=== PATIENT | male | born 1955 | race African-American/Black ===

== ENCOUNTER 2017-02-26 19:20 | Observation (INO) | payer OTHER ==
[~2017-02-26] VITALS: Ht 182.9 cm; Wt 78.2 kg
[2017-02-26] MEDS ORDERED: LISI-461 PO (19:40)
[2017-02-26] MEDS ORDERED: ATOR-24 PO (19:40)
[2017-02-26] MEDS ORDERED: ASPI81TA28 PO (19:40)
[2017-02-26] MEDS ORDERED: NORT25CA PO (19:40)
[2017-02-26] MEDS ORDERED: DIPH50CA PO (19:40)
[2017-02-26] MEDS ORDERED: AMLO-110 PO (19:40)
[2017-02-26] MEDS ORDERED: GLIM1TAB2 PO (19:40)
[2017-02-26] MEDS ORDERED: HYDR25TA5 PO (19:40)
[2017-02-26] MEDS ORDERED: SODIUM CHLORIDE 0.9% 1000ML 1,000 ML IV STA ×2 (19:52→21:31)
[2017-02-26 20:02] LABS: BASO % 0.1 %; BASO ABS # 0.01 K/uL (0-0.2); EOS % 0.1 %; EOS ABS # 0.01 K/uL (0-0.5); HEMATOCRIT 44.2 % (42-52); HEMOGLOBIN 15.6 g/dL (14.0-18.0); IG# 0.02 K/uL (0.00-0.02); LYMPH % 18.5 %; MEAN CELL VOLUME 92.1 fL (80-100); MEAN CORPUSCULAR HEMOGLOBIN 32.5 pg (25-34); MEAN CORPUSCULAR HGB CONC 35.3 g/dl (32-36); MEAN PLATELET VOLUME 9.6 fL (7.4-10.4); MONO % 5.7 %; MONO ABS # 0.52 K/uL (0.11-0.59); NEUT % 75.4 %; NEUT ABS # 6.93 K/uL (1.4-6.5); PLATELET COUNT 190 K/uL (130-400); RED CELL DISTRIBUTION WIDTH CV 12.4 % (11.5-14.5); RED CELL DISTRIBUTION WIDTH SD 42.2 fL (36.4-46.3); WHITE BLOOD COUNT 9.19 K/uL (4.8-10.8)
--- NOTE | 2017-02-26 20:16 | DIAGNOSTIC IMAGING REPORT ---
CT SCAN OF THE BRAIN WITHOUT IV CONTRAST CLINICAL HISTORY: Change in mental status. Unresponsive. COMPARISON STUDY: No priors. TECHNIQUE: Unenhanced axial CT scan of the brain is performed from the vertex to the skull base. A dose lowering technique was utilized adhering to the principles of ALARA. CT DOSE: 810.83 mGy.cm FINDINGS: Brain parenchyma: The brain parenchyma is normal in appearance. There is no hemorrhage, mass effect, or evidence of acute territorial ischemia by CT criteria. Joe-white matter is preserved. No extra-axial fluid collection is seen. Ventricles, sulci, cisterns: Normal in configuration. Intracranial vasculature: There is atherosclerotic calcification of the cavernous carotid arteries. Calvarium: Unremarkable. Sinuses and mastoids: The visualized paranasal sinuses are clear. The mastoid air cells are well pneumatized. Orbits: The bony orbits are grossly intact. IMPRESSION: There is no hemorrhage, mass effect, or evidence of acute territorial ischemia by CT criteria. Electronically signed by: Valdez Carreon M.D. 02/26/2017 8:15 PM Dictated Date/Time: 02/26/2017 8:13 PM
--- NOTE | 2017-02-26 20:27 | DIAGNOSTIC IMAGING REPORT ---
SINGLE VIEW CHEST CLINICAL HISTORY: Generalized abdominal pain. FINDINGS: An AP, portable, upright chest radiograph is obtained. No prior studies are available for comparison at the time of dictation. The examination is mildly degraded by portable technique and patient rotation. The cardiomediastinal silhouette is unremarkable. The lungs and pleural spaces are clear. No pneumothorax is seen. The bony thorax is grossly intact. IMPRESSION: No active disease in the chest. Electronically signed by: Valdez Carreon M.D. 02/26/2017 8:25 PM Dictated Date/Time: 02/26/2017 8:24 PM
[2017-02-26 22:15] LABS: BASO % 0.1 %; BASO ABS # 0.01 K/uL (0-0.2); EOS % 0.1 %; EOS ABS # 0.01 K/uL (0-0.5); HEMATOCRIT 41.9 % (42-52); HEMOGLOBIN 14.4 g/dL (14.0-18.0); IG# 0.01 K/uL (0.00-0.02); LYMPH % 13.3 %; LYMPH ABS # 1.27 K/uL (1.2-3.4); MEAN CELL VOLUME 92.7 fL (80-100); MEAN CORPUSCULAR HEMOGLOBIN 31.9 pg (25-34); MEAN CORPUSCULAR HGB CONC 34.4 g/dl (32-36); MEAN PLATELET VOLUME 10.4 fL (7.4-10.4); MONO % 7.9 %; MONO ABS # 0.75 K/uL (0.11-0.59); NEUT % 78.5 %; NEUT ABS # 7.48 K/uL (1.4-6.5); PLATELET COUNT 183 K/uL (130-400); RED CELL DISTRIBUTION WIDTH CV 12.9 % (11.5-14.5); RED CELL DISTRIBUTION WIDTH SD 42.9 fL (36.4-46.3); WHITE BLOOD COUNT 9.53 K/uL (4.8-10.8)
[2017-02-26 23:20] LABS: ALBUMIN 3.2 gm/dl (3.4-5.0); CALCIUM 8.7 mg/dl (8.5-10.1); CREATININE 0.8 mg/dl (0.60-1.40); POTASSIUM 3.6 mmol/L (3.5-5.1); TOTAL PROTEIN 6.6 gm/dl (6.4-8.2)
[2017-02-27] VITALS (12 sets, daily range): BP systolic 159–191; BP diastolic 74–95; PULSE 81–99; TEMP 36.4–36.9; O2SAT 95–100; Ht 182.9 cm; Wt 78.2 kg
[2017-02-27] MEDS ORDERED: GLUCOSE 40% GEL 15 GM TUBE PO PRN (02:45)
[2017-02-27] MEDS ORDERED: DEXTROSE 50% 50 ML SYR IV PRN (02:45)
[2017-02-27] MEDS ORDERED: ENALAPRILAT IV 0.625 MG in DEXTROSE 5% 25ML 25 ML IV PRN (02:45)
[2017-02-27] MEDS ORDERED: GLUCAGON FOR INJ 1 MG VIAL SQ PRN (02:45)
[2017-02-27] MEDS ORDERED: GLUCOSE 10 TABS/TUBE PO PRN (02:45)
[2017-02-27] MEDS ORDERED: IV FLUIDS COMPLETED PRN (05:00)
[2017-02-27] MEDS ORDERED: INFLUENZA ADMINISTRATION CHARGE ONE (05:00)
[2017-02-27] MEDS ORDERED: INFLUENZA VIRUS QUAD VACCINE 0.5 ML SYR IM. ONE (05:00)
[2017-02-27] MEDS: SODIUM CHLORIDE 0.9% 1000ML 1,000 ML IV SCH ×2 (05:40→16:19)
--- NOTE | 2017-02-27 05:57 | EMERGENCY ROOM VISIT NOTE ---
History Report prepared by Danika: Yesenia Baumann Under the Supervision of: Dr. Addison Cleveland M.D. First contact with patient: 19:42 Chief Complaint: UNRESPONSIVE Stated Complaint: SEMI RESPONESIVE Nursing Triage Summary: Last seen normal 1200 today. Found on bed in cell this evening non-responsive. No reports of trauma recently. Has refused to eat last 5 meals, does have access to snacks. Pt is non-verbal, EMS found no signs of trauma. History of Present Illness The patient is a 62 year old male who presents to the Emergency Room with complaints of an episode of unresponsiveness starting this evening. Per nursing staff, the patient was found in his cell unresponsive. They report that the guards last saw him well seven hours ago. They report that the guards denies any recent trauma. HPI limited secondary to mental status. History Limited By: AMS Onset: this evening Position: other (global) Timing: other (episode) Note: Guards deny the patient having recent trauma. Review of Systems See HPI for pertinent positives and negatives. A total of ten systems were reviewed and were otherwise negative. Past Medical & Surgical Medical Problems: (1) Altered mental status (2) Anxiety (3) Chronic rhinitis (4) Diabetes (5) HTN (hypertension) (6) Hyperlipidemia (7) Neuropathy Family History Patient reports no known family medical history. Social History Marital Status: single Housing Status: other (half-way) Occupation Status: other (prisoner) Current/Historical Medications Scheduled Amlodipine (Norvasc), 5 MG PO DAILY Aspirin (Aspirin Ec), 81 MG PO DAILY Atorvastatin (Lipitor), 40 MG PO DAILY Diphenhydramine Hcl (Diphenhydramine Hcl), 100 MG PO HS Glimepiride (Glimepiride), 1 MG PO QAM Hydrochlorothiazide (Hydrochlorothiazide), 25 MG PO DAILY Lisinopril (Zestril), 10 MG PO DAILY Nortriptyline (Pamelor), 50 MG PO DAILY Allergies Coded Allergies: No Known Allergies (Unverified , 02/26/17) Physical Exam Vital Signs Date Time Temp Pulse Resp B/P (MAP) Pulse Ox O2 Delivery O2 Flow Rate FiO2 02/27/17 01:13 89 97 02/27/17 01:08 173/94 02/27/17 00:05 84 14 100 Room Air 02/27/17 00:00 87 16 176/97 100 02/26/17 23:45 88 14 100 02/26/17 23:30 88 14 169/96 100 02/26/17 23:15 88 14 100 02/26/17 23:05 92 02/26/17 23:00 94 15 185/99 100 02/26/17 22:45 92 14 100 02/26/17 22:30 91 15 179/96 02/26/17 22:25 87 15 02/26/17 22:10 89 17 02/26/17 22:00 179/99 02/26/17 21:55 88 16 02/26/17 21:40 88 24 02/26/17 21:30 188/100 02/26/17 21:25 90 20 02/26/17 21:10 94 18 100 02/26/17 21:00 182/96 02/26/17 20:55 86 17 99 02/26/17 20:40 95 13 99 02/26/17 20:30 178/103 02/26/17 20:25 85 14 99 02/26/17 20:16 175/93 02/26/17 20:05 87 13 99 02/26/17 20:00 176/98 02/26/17 19:50 100 17 100 02/26/17 19:35 91 20 99 Room Air 02/26/17 19:31 95 02/26/17 19:30 174/100 02/26/17 19:28 179/95 02/26/17 19:26 36.2 91 18 179/95 98 Room Air Physical Exam GENERAL: Well-appearing, in no distress HENT: Normocephalic, atraumatic. Oropharynx unremarkable. EYES: Normal conjunctiva. Sclera non-icteric. NECK: Supple. No nuchal rigidity. FROM. No JVD. RESPIRATORY: Clear to auscultation. CARDIAC: Regular rate, normal rhythm. Extremities warm and well perfused. Pulses equal. ABDOMEN: Soft, non-distended. No tenderness to palpation. No rebound or guarding. No masses. RECTAL: Deferred. MUSCULOSKELETAL: Chest examination reveals no tenderness. The back is symmetrical on inspection without obvious abnormality. There is no CVA tenderness to palpation. No joint edema. LOWER EXTREMITIES: Calves are equal size bilaterally and non-tender. No edema. No discoloration. NEURO: No sensory or motor deficits noted. GCS 13. Responsive to painful stimulus and then will follow commands. Noted after he is alert, he will close his eyes and fight to keep them closed when I attempt to open them. No clonus. No hyperreflexia. SKIN: No rash or jaundice noted. Medical Decision & Procedures ER Provider Diagnostic Interpretation: Radiology results as stated below per my review and radiologist interpretation: SINGLE VIEW CHEST CLINICAL HISTORY: Generalized abdominal pain. FINDINGS: An AP, portable, upright chest radiograph is obtained. No prior studies are available for comparison at the time of dictation. The examination is mildly degraded by portable technique and patient rotation. The cardiomediastinal silhouette is unremarkable. The lungs and pleural spaces are clear. No pneumothorax is seen. The bony thorax is grossly intact. IMPRESSION: No active disease in the chest. Electronically signed by: Valdez Carreon M.D. 02/26/2017 8:25 PM Dictated Date/Time: 02/26/2017 8:[address] SCAN OF THE BRAIN WITHOUT IV CONTRAST CLINICAL HISTORY: Change in mental status. Unresponsive. COMPARISON STUDY: No priors. TECHNIQUE: Unenhanced axial CT scan of the brain is performed from the vertex to the skull base. A dose lowering technique was utilized adhering to the principles of ALARA. CT DOSE: 810.83 mGy.cm FINDINGS: Brain parenchyma: The brain parenchyma is normal in appearance. There is no hemorrhage, mass effect, or evidence of acute territorial ischemia by CT criteria. Joe-white matter is preserved. No extra-axial fluid collection is seen. Ventricles, sulci, cisterns: Normal in configuration. Intracranial vasculature: There is atherosclerotic calcification of the cavernous carotid arteries. Calvarium: Unremarkable. Sinuses and mastoids: The visualized paranasal sinuses are clear. The mastoid air cells are well pneumatized. Orbits: The bony orbits are grossly intact. IMPRESSION: There is no hemorrhage, mass effect, or evidence of acute territorial ischemia by CT criteria. Electronically signed by: Valdez Carreon M.D. 02/26/2017 8:15 PM Dictated Date/Time: 02/26/2017 8:13 PM MRI HEAD: Comparison: CT head earlier same day. No acute infarct or intracranial hemorrhage. Mild scattered T2/Flair white matter hyperintensities, nonspecific but most commonly related to chronic small vessel ischemic changes. Chronic very small lacunar infarct left cerebellar hemisphere. No hydrocephalus or mass effect. Paranasal sinuses and mastoid air cells are clear. Radiologist: Omari Veliz MD Study ready at 01:36 and initial results transmitted at 02:03. Laboratory Results 02/26/17 22:06 Red Blood Count 4.52, Mean Corpuscular Volume 92.7, Mean Corpuscular Hemoglobin 31.9, Mean Corpuscular Hemoglobin Concent 34.4, Mean Platelet Volume 10.4, Neutrophils (%) (Auto) 78.5, Lymphocytes (%) (Auto) 13.3, Monocytes (%) (Auto) 7.9, Eosinophils (%) (Auto) 0.1, Basophils (%) (Auto) 0.1, Neutrophils # (Auto) 7.48, Lymphocytes # (Auto) 1.27, Monocytes # (Auto) 0.75, Eosinophils # (Auto) 0.01, Basophils # (Auto) 0.01 02/26/17 22:39 Test 02/26/17 21:23 02/26/17 22:06 02/26/17 22:39 02/26/17 23:44 Urine Color YELLOW Urine Appearance CLEAR (CLEAR) Urine pH 6.5 (4.5-7.5) Urine Specific [place] 1.020 (1.000-1.030) Urine Protein NEG (NEG) Urine Glucose (UA) NEG (NEG) Urine Ketones TRACE (NEG) Urine Occult Blood NEG (NEG) Urine Nitrite NEG (NEG) Urine Bilirubin NEG (NEG) Urine Urobilinogen NEG (NEG) Urine Leukocyte Esterase NEG (NEG) White Blood Count 9.53 K/uL (4.8-10.8) Red Blood Count 4.52 M/uL (4.7-6.1) Hemoglobin 14.4 g/dL (14.0-18.0) Hematocrit 41.9 % (42-52) Mean Corpuscular Volume 92.7 fL (80-100) Mean Corpuscular Hemoglobin 31.9 pg (25-34) Mean Corpuscular Hemoglobin Concent 34.4 g/dl (32-36) Platelet Count 183 K/uL (130-400) Mean Platelet Volume 10.4 fL (7.4-10.4) Neutrophils (%) (Auto) 78.5 % Lymphocytes (%) (Auto) 13.3 % Monocytes (%) (Auto) 7.9 % Eosinophils (%) (Auto) 0.1 % Basophils (%) (Auto) 0.1 % Neutrophils # (Auto) 7.48 K/uL (1.4-6.5) Lymphocytes # (Auto) 1.27 K/uL (1.2-3.4) Monocytes # (Auto) 0.75 K/uL (0.11-0.59) Eosinophils # (Auto) 0.01 K/uL (0-0.5) Basophils # (Auto) 0.01 K/uL (0-0.2) RDW Standard Deviation 42.9 fL (36.4-46.3) RDW Coefficient of Variation 12.9 % (11.5-14.5) Immature Granulocyte % (Auto) 0.1 % Immature Granulocyte # (Auto) 0.01 K/uL (0.00-0.02) Anion Gap 7.0 mmol/L (3-11) Est Creatinine Clear Calc Drug Dose 103.8 ml/min Estimated GFR () 110.2 Estimated GFR (Non- 95.1 BUN/Creatinine Ratio 25.9 (10-20) Calcium Level 8.7 mg/dl (8.5-10.1) Total Bilirubin 0.5 mg/dl (0.2-1) Direct Bilirubin 0.1 mg/dl (0-0.2) Aspartate Amino Transf (AST/SGOT) 11 U/L (15-37) Alanine Aminotransferase (ALT/SGPT) 23 U/L (12-78) Alkaline Phosphatase 73 U/L (45-117) Total Protein 6.6 gm/dl (6.4-8.2) Albumin 3.2 gm/dl (3.4-5.0) Lipase 49 U/L (73-393) Thyroid Stimulating Hormone (TSH) 1.090 uIu/ml (0.300-4.500) Salicylates Level < 1.7 mg/dl (2.8-20) Acetaminophen Level < 2 ug/ml (10-30) Ammonia 33.0 umol/L (11-32) Ethyl Alcohol mg/dL < 3.0 mg/dl (0-3) Test 02/27/17 00:15 Urine Opiates Screen NEG (NEG) Urine Methadone, Qualitative NEG (NEG) Urine Barbiturates NEG (NEG) Urine Phencyclidine (PCP) Level NEG (NEG) Ur Amphetamine/Methamphetamine NEG (NEG) MDMA (Ecstasy) Screen NEG (NEG) Urine Benzodiazepines Screen NEG (NEG) Urine Cocaine Metabolite NEG (NEG) Urine Marijuana (THC) NEG (NEG) Laboratory results reviewed by me Medications Administered Medications (Trade) Dose Ordered Sig/Shari Route Start Time Stop Time Status Last Admin Dose Admin Sodium Chloride 1,000 ml @ 999 mls/hr Q1H1M STAT IV 02/26/17 19:52 02/26/17 20:52 DC 02/26/17 20:51 999 MLS/HR Sodium Chloride 1,000 ml @ 999 mls/hr Q1H1M STAT IV 02/26/17 21:31 02/26/17 22:31 DC 02/26/17 22:20 999 MLS/HR ECG Indication: altered mental status Rate (beats per minute): 89 Rhythm: normal sinus Findings: no acute ischemic change, other (normal axis) ED Course 1943: The patient was evaluated in room B2. A complete history and physical exam was performed. 2330: I reevaluated the patient and tested him with painful stimuli agian. He awakes and then closes his eyes. He seems unresponsive other bellamy. 2333: I discussed the patient with Dr.Panlilio Willis Abrams will evaluate the patient for further treatment. Medical Decision I reviewed the patient's past medical history, medications, and the nursing notes as described above. Differential diagnoses include intracranial hemorrhage, polysubstance overdose, pneumonia, bronchitis, UTI, electrolyte abnormalities, psychogenic, catatonia. The patient is a 62 y/o gentlemen currently incarcerate who presents to the ED with unresponsiveness from his facility that was discovered this evening with last known well this morning per HPI. On arrivals the patient has a GCS of 13 where he will respond to sternal rub, open his eyes, speak and follow commands but then will lie down and close his eyes and resume catatonic behavior. Neck supple. DTRs normal. No Clonus. Pupils 3mm and reactive. Labs unremarkable including WBC wnl. CXR negative. CT head negative. UA negative. Patient reassess and still with similar behavior where with will become awake after noxious stimulus such as straight cath and nasal trumpet. Given patient's persistent catatonic behavior will need admission to r/o possible encephalopathy. Given wbc wnl and afebrile no indication for LP at this time. MRI ordered. Case d/w Jose Alberto Holley hospitalist, who will admit the patient for further management. Head Trauma GCS Score: 13 Medication Reconcilliation Current Medication List: was personally reviewed by me Blood Pressure Screening Patient's blood pressure: Elevated blood pressure Blood pressure disposition: Elevated BP felt to be situational Consults Time Called: 2329 Consulting Physician: Dr. Aurora Abrams Returned Call: [phone] I discussed the patient with Dr. Aurora Abrams will evaluate the patient for further treatment. Impression Primary Impression: Altered mental status Additional Impression: Catatonia Scribe Attestation The scribe's documentation has been prepared under my direction and personally reviewed by me in its entirety. I confirm that the note above accurately reflects all work, treatment, procedures, and medical decision making performed by me. Departure Information Dispostion Being Evaluated By Hospitalist Referrals No Doctor, Assigned (PCP) Patient Instructions [facility] Problem Qualifiers
[2017-02-27] MEDS: INSULIN ASPART 100 UNITS/ML 3 ML PEN SC SCH ×4 (06:00→23:46)
[2017-02-27] MEDS ORDERED: ENALAPRILAT IV 1.25 MG in DEXTROSE 5% 25ML 25 ML IV ONE (06:30)
--- NOTE | 2017-02-27 07:41 | DIAGNOSTIC IMAGING REPORT ---
BRAIN WITHOUT CONTRAST CLINICAL HISTORY: 62 years-old Male presenting with ams. TECHNIQUE: Multisequence, multiplanar MR imaging of the brain was performed without the use of intravenous contrast. IV contrast: None. COMPARISON: CT head from 02/26/2017. FINDINGS: Ventricles and sulci normal in size. Incidental note made of cavum septi pellucidi. Periventricular and subcortical white matter T2/FLAIR hyperintensity, nonspecific but likely indicative of chronic small vessel ischemic change. Small left cerebellar infarct. No mass effect or midline shift. No restricted diffusion to suggest acute ischemia. No hemorrhage. No extra-axial fluid collection. T2 skull base flow voids preserved. Upper convexity of the pituitary gland, unexpected in a male patient of this age. Bone marrow signal intensity within the calvarium within normal limits. IMPRESSION: 1. No acute intracranial abnormality. 2. Enlargement of the pituitary gland is unexpected in a male patient of this age. This could represent pituitary hyperplasia or an underlying microadenoma. Electronically signed by: Cecil Lemus M.D. 02/27/2017 7:39 AM Dictated Date/Time: 02/27/2017 6:50 AM
[2017-02-27] MEDS: ATORVASTATIN 40 MG TAB PO SCH (09:00)
[2017-02-27] MEDS: AMLODIPINE BESYLATE 5 MG TAB PO SCH (09:00)
[2017-02-27] MEDS: ASPIRIN 81 MG ECTAB PO SCH (09:00)
[2017-02-27] MEDS: LISINOPRIL 10 MG TAB PO SCH (09:00)
--- NOTE | 2017-02-27 09:31 | History and Physical ---
History & Physical Date & Time of Service: Feb 27, 2017 at 09:16 Chief Complaint: AMS Primary Care Physician: JUSTINS[facility] History of Present Illness Source: patient, clinic records, hospital records 62 year old male, inmate of [facility], with history of DM 2, HTN, Anxiety, and other problems noted below presenting with altered mental status. History difficult to obtain as patient seemed to be awake but was keeping his eyes close and was not responding to questions. Per ER records, patient was found in his cell unresponsive, no history of trauma , last seen at baseline 7 hours earlier. At the ER, neuro exam by Dr. Cleveland revealed: "Responsive to painful stimulus and then will follow commands. Noted after he is alert, he will close his eyes and fight to keep them closed when I attempt to open them." Furthermore, during attempts to insert a nasal trumpet and sumner catheter, patient would awaken, and shout curses. CT head is unremarkable, urine drug screen and blood tests were unrevealing. On my exam, guards at the bedside, patient had his eyes closed and was not responding to my questions. Occasionally, he would raise his eyebrows to some of my questions, followed my command that he turn to his side for lung exam. Otherwise, shuts his eyes tight when I try to examine them. When I raised his arm over his chest and lets it go, the arm would fall to his side. No signs of distress, pain. Neck is supple. The guards on duty could not supplement the history. Family History Patient reports no known family medical history. cannot be obtained as patient not responding to questions Social History Smoking Status: Unknown if Ever Smoked Alcohol Use: unknown Drug Use: other (unknown) Marital Status: single Occupational Status: other (prisoner) Allergies Coded Allergies: No Known Allergies (Unverified , 02/26/17) Home Medications Scheduled Amlodipine (Norvasc), 5 MG PO DAILY Aspirin (Aspirin Ec), 81 MG PO DAILY Atorvastatin (Lipitor), 40 MG PO DAILY Diphenhydramine Hcl (Diphenhydramine Hcl), 100 MG PO HS Glimepiride (Glimepiride), 1 MG PO QAM Hydrochlorothiazide (Hydrochlorothiazide), 25 MG PO DAILY Lisinopril (Zestril), 10 MG PO DAILY Nortriptyline (Pamelor), 50 MG PO DAILY Physical Exam Vital Signs Date Time Temp Pulse Resp B/P (MAP) Pulse Ox O2 Delivery O2 Flow Rate FiO2 02/27/17 06:09 175/91 (119) 02/27/17 04:31 175/90 (118) 02/27/17 04:03 177/90 (119) 02/27/17 04:02 Room Air 02/27/17 02:30 36.4 81 16 191/95 98 Room Air 02/27/17 02:13 87 15 97 02/27/17 02:00 179/98 02/27/17 01:58 88 14 98 02/27/17 01:43 93 14 97 02/27/17 01:30 165/95 02/27/17 01:28 91 17 98 02/27/17 01:13 89 97 02/27/17 01:08 173/94 02/27/17 00:05 84 14 100 Room Air 02/27/17 00:00 87 16 176/97 100 02/26/17 23:45 88 14 100 02/26/17 23:30 88 14 169/96 100 02/26/17 23:15 88 14 100 02/26/17 23:05 92 02/26/17 23:00 94 15 185/99 100 02/26/17 22:45 92 14 100 02/26/17 22:30 91 15 179/96 02/26/17 22:25 87 15 02/26/17 22:10 89 17 02/26/17 22:00 179/99 02/26/17 21:55 88 16 02/26/17 21:40 88 24 02/26/17 21:30 188/100 02/26/17 21:25 90 20 02/26/17 21:10 94 18 100 02/26/17 21:00 182/96 02/26/17 20:55 86 17 99 02/26/17 20:40 95 13 99 02/26/17 20:30 178/103 02/26/17 20:25 85 14 99 02/26/17 20:16 175/93 02/26/17 20:05 87 13 99 02/26/17 20:00 176/98 02/26/17 19:50 100 17 100 02/26/17 19:35 91 20 99 Room Air 02/26/17 19:31 95 02/26/17 19:30 174/100 02/26/17 19:28 179/95 02/26/17 19:26 36.2 91 18 179/95 98 Room Air General Appearance: WD/WN, no apparent distress Head: normocephalic, atraumatic Eyes: normal inspection, PERRL, EOMI, sclerae normal ENT: normal ENT inspection Neck: supple, no adenopathy, thyroid normal, no JVD, trachea midline Respiratory/Chest: chest non-tender, lungs clear, normal breath sounds, no respiratory distress, no accessory muscle use Cardiovascular: regular rate, rhythm, no edema, no JVD, no murmur Abdomen/GI: normal bowel sounds, non tender, soft Back: normal inspection, no CVA tenderness Extremities/Musculoskelatal: normal inspection, no calf tenderness, no pedal edema Neurologic/Psych: + pertinent finding (difficult to perform as patient was uncooperative, pupils 3mm equal round reactive to light, moves all extremities equally, grimaces to pain) Skin: normal color, warm/dry, no rash Lymphatic: no adenopathy Diagnostics Laboratory Results Results Past 24 Hours Test 02/26/17 19:30 02/26/17 21:23 02/26/17 22:06 02/26/17 22:39 Range/Units White Blood Count 9.19 9.53 4.8-10.8 K/uL Red Blood Count 4.80 4.52 4.7-6.1 M/uL Hemoglobin 15.6 14.4 14.0-18.0 g/dL Hematocrit 44.2 41.9 42-52 % Mean Corpuscular Volume 92.1 92.7 80-100 fL Mean Corpuscular Hemoglobin 32.5 31.9 25-34 pg Mean Corpuscular Hemoglobin Concent 35.3 34.4 32-36 g/dl Platelet Count 190 183 130-400 K/uL Mean Platelet Volume 9.6 10.4 7.4-10.4 fL Neutrophils (%) (Auto) 75.4 78.5 % Lymphocytes (%) (Auto) 18.5 13.3 % Monocytes (%) (Auto) 5.7 7.9 % Eosinophils (%) (Auto) 0.1 0.1 % Basophils (%) (Auto) 0.1 0.1 % Neutrophils # (Auto) 6.93 7.48 1.4-6.5 K/uL Lymphocytes # (Auto) 1.70 1.27 1.2-3.4 K/uL Monocytes # (Auto) 0.52 0.75 0.11-0.59 K/uL Eosinophils # (Auto) 0.01 0.01 0-0.5 K/uL Basophils # (Auto) 0.01 0.01 0-0.2 K/uL RDW Standard Deviation 42.2 42.9 36.4-46.3 fL RDW Coefficient of Variation 12.4 12.9 11.5-14.5 % Immature Granulocyte % (Auto) 0.2 0.1 % Immature Granulocyte # (Auto) 0.02 0.01 0.00-0.02 K/uL Urine Color YELLOW Urine Appearance CLEAR CLEAR Urine pH 6.5 4.5-7.5 Urine Specific [place] 1.020 1.000-1.030 Urine Protein NEG NEG Urine Glucose (UA) NEG NEG Urine Ketones TRACE NEG Urine Occult Blood NEG NEG Urine Nitrite NEG NEG Urine Bilirubin NEG NEG Urine Urobilinogen NEG NEG Urine Leukocyte Esterase NEG NEG Sodium Level 139 136-145 mmol/L Potassium Level 3.6 3.5-5.1 mmol/L Chloride Level 103 98-107 mmol/L Carbon Dioxide Level 29 21-32 mmol/L Anion Gap 7.0 3-11 mmol/L Blood Urea Nitrogen 21 7-18 mg/dl Creatinine 0.80 0.60-1.40 mg/dl Est Creatinine Clear Calc Drug Dose 103.8 ml/min Estimated GFR () 110.2 Estimated GFR (Non- 95.1 BUN/Creatinine Ratio 25.9 10-20 Random Glucose 128 70-99 mg/dl Calcium Level 8.7 8.5-10.1 mg/dl Total Bilirubin 0.5 0.2-1 mg/dl Direct Bilirubin 0.1 0-0.2 mg/dl Aspartate Amino Transf (AST/SGOT) 11 15-37 U/L Alanine Aminotransferase (ALT/SGPT) 23 12-78 U/L Alkaline Phosphatase 73 45-117 U/L Total Protein 6.6 6.4-8.2 gm/dl Albumin 3.2 3.4-5.0 gm/dl Lipase 49 73-393 U/L Thyroid Stimulating Hormone (TSH) 1.090 0.300-4.500 uIu/ml Salicylates Level < 1.7 2.8-20 mg/dl Acetaminophen Level < 2 10-30 ug/ml Test 02/26/17 23:44 02/27/17 00:15 02/27/17 06:08 Range/Units Ammonia 33.0 11-32 umol/L Ethyl Alcohol mg/dL < 3.0 0-3 mg/dl Urine Opiates Screen NEG NEG Urine Methadone, Qualitative NEG NEG Urine Barbiturates NEG NEG Urine Phencyclidine (PCP) Level NEG NEG Ur Amphetamine/Methamphetamine NEG NEG MDMA (Ecstasy) Screen NEG NEG Urine Benzodiazepines Screen NEG NEG Urine Cocaine Metabolite NEG NEG Urine Marijuana (THC) NEG NEG Bedside Glucose 123 70-99 mg/dl Microbiology Results 02/27/17 MRSA DNA Surveillance Screen - Final, Complete Specimen Negative for MRSA by DNA Probe 02/26/17 Urine Culture, Received Pending Diagnostic Radiology CT head: There is no hemorrhage, mass effect, or evidence of acute territorial ischemia by CT criteria. CXR: IMPRESSION: No active disease in the chest. Impression Assessment and Plan 62 year old male, inmate of [facility], with history of DM 2, HTN, Anxiety, and other problems noted below presenting with altered mental status. ALTERED MENTAL STATUS - history and physical exam is challenging at this time as patient not responding to questions, seems uncooperative - may end up being a malingering patient but will need to exclude other possibilities - work up so far unrevealing for infection - Brain MRI pending - Psych consulted for possible Depression - may need Neurology consultation - Neurochecks ordered DM 2 - hold Glimepiride - ISS for now HTN - elevated - add PRN Enalaprilat IV - hold PO meds until patient more alert ANXIETY - not on any Psych meds except Pamelor for neuropathy? DVT PROPHYLAXIS SCDs CODE STATUS patient not responding to questions full code for now until patient more cooperative with interview DISPOSITION inmate of [facility] Advanced Directives Existing Living Will: No Existing Power of Production Control Pegboard Clerk: No VTE Prophylaxis VTE Risk Assessment Done? Y/N: Yes Risk Level: Moderate Given or contraindicated: SCD's
[2017-02-27] MEDS: ENALAPRILAT IV 1.25 MG in DEXTROSE 5% 25ML 25 ML IV PRN ×2 (10:25→23:38)
--- NOTE | 2017-02-27 11:48 | Psychiatric Consultation ---
Psychiatric Consultation Date of Service: Feb 27, 2017. 62-year-old -[place] inmate at [facility] who was discovered unresponsive. Per notes obtained from the facility, he had not eaten for 5 meals prior to being found unresponsive. There was no indication that he had been unwell. 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 The only psychiatric medication he is on his Benadryl for sleep and he is also on nortriptyline likely not for psychiatric purposes. Nursing informs me that he has been in solitary confinement while at the long term. Since admission, he has not been responsive to verbal questioning. At the time I see the patient is lying on his back with handcuffs to an arm and leg. He keeps his eyes closed, eyes twitching. He does not have any verbal responses to my questions however does reposition himself intentionally to her 3 times during my presence there. He has extremely malodorous breath, twitching eyelids but no other abnormal movements are noted. Review of labs reveals nothing remarkable, CT and MRI of the head are without acute events. At this point I have nothing to offer other than to wait and watch, until the patient becomes verbal and can answer questions. I do not have a sense that this is a catatonia related to a primary thought disorder and I have high suspicion that he is intentionally not responding as he is perfectly able to reposition himself when he is uncomfortable. Please feel free to reconsult us when the patient is verbal. The above information has been reviewed with Dr. Conchita Panchal
--- NOTE | 2017-02-27 15:50 | Progress Note ---
Subjective Date of Service: Feb 27, 2017. Subjective Pt evaluation today including: physical exam, lab review, review of studies, review of inpatient medication list Saw/examined the patient in room 234 He is not responding to verbal stimuli moves around to painful stimuli eyes are twitching, RLE is cuffed to the bed, LUE cuffed to the bed Problem List Medical Problems: (1) Catatonia Status: Acute Medications Current Inpatient Medications Medications (Trade) Dose Ordered Sig/Shari Route Start Time Stop Time Status Last Admin Dose Admin Sodium Chloride 1,000 ml @ 75 mls/hr [id number] IV 02/27/17 02:34 03/29/17 02:33 02/27/17 05:40 75 MLS/HR Insulin Aspart (novoLOG ASPART) SLIDING SCALE If C... Q6 SC 02/27/17 06:00 03/29/17 05:59 Glucose (Glucose 40% Gel) 15-30 GRAMS 15 GRAMS... UD PRN PO 02/27/17 02:45 03/29/17 02:44 Glucose (Glucose Chew Tab) 4-8 Tablets 4 Tabl... UD PRN PO 02/27/17 02:45 03/29/17 02:44 Dextrose (Dextrose 50% 50ML Syringe) 25-50ML OF 50% DW IV FOR... UD PRN IV 02/27/17 02:45 03/29/17 02:44 Glucagon (Glucagon Inj) 1 mg UD PRN SQ 02/27/17 02:45 03/29/17 02:44 Amlodipine Besylate (Norvasc Tab) 5 mg DAILY PO 02/27/17 09:00 03/29/17 08:59 Aspirin (Ecotrin Tab) 81 mg DAILY PO 02/27/17 09:00 03/29/17 08:59 Atorvastatin Calcium (Lipitor Tab) 40 mg DAILY PO 02/27/17 09:00 03/29/17 08:59 Lisinopril (Zestril Tab) 10 mg DAILY PO 02/27/17 09:00 03/29/17 08:59 Miscellaneous (Iv Fluids Completed) 1 ea PRN PRN N/A 02/27/17 05:00 02/27/18 04:59 Enalaprilat 1.25 mg/Dextrose 26 ml @ 100 mls/hr Q6H PRN IV 02/27/17 06:00 03/29/17 05:59 02/27/17 10:25 100 MLS/HR Objective Vital Signs Date Time Temp Pulse Resp B/P (MAP) Pulse Ox O2 Delivery O2 Flow Rate FiO2 02/27/17 15:25 36.8 99 18 159/74 (102) 96 02/27/17 12:00 Room Air 02/27/17 11:45 36.7 92 18 168/91 (116) 98 Room Air 02/27/17 08:00 36.7 95 16 168/87 (114) 97 Room Air 02/27/17 08:00 Room Air 02/27/17 06:09 175/91 (119) 02/27/17 04:31 175/90 (118) 02/27/17 04:03 177/90 (119) 02/27/17 04:02 Room Air 02/27/17 02:30 36.4 81 16 191/95 98 Room Air 02/27/17 02:13 87 15 97 02/27/17 02:00 179/98 02/27/17 01:58 88 14 98 02/27/17 01:43 93 14 97 02/27/17 01:30 165/95 02/27/17 01:28 91 17 98 02/27/17 01:13 89 97 02/27/17 01:08 173/94 02/27/17 00:05 84 14 100 Room Air 02/27/17 00:00 87 16 176/97 100 02/26/17 23:45 88 14 100 02/26/17 23:30 88 14 169/96 100 02/26/17 23:15 88 14 100 02/26/17 23:05 92 02/26/17 23:00 94 15 185/99 100 02/26/17 22:45 92 14 100 02/26/17 22:30 91 15 179/96 02/26/17 22:25 87 15 02/26/17 22:10 89 17 02/26/17 22:00 179/99 02/26/17 21:55 88 16 02/26/17 21:40 88 24 02/26/17 21:30 188/100 02/26/17 21:25 90 20 02/26/17 21:10 94 18 100 02/26/17 21:00 182/96 02/26/17 20:55 86 17 99 02/26/17 20:40 95 13 99 02/26/17 20:30 178/103 02/26/17 20:25 85 14 99 02/26/17 20:16 175/93 02/26/17 20:05 87 13 99 02/26/17 20:00 176/98 02/26/17 19:50 100 17 100 02/26/17 19:35 91 20 99 Room Air 02/26/17 19:31 95 02/26/17 19:30 174/100 02/26/17 19:28 179/95 02/26/17 19:26 36.2 91 18 179/95 98 Room Air Physical Exam General Appearance: no apparent distress, + pertinent finding (laying in bed, not responding to verbal stimuli, nonverbal) Respiratory/Chest: no respiratory distress, no accessory muscle use Cardiovascular: regular rate, rhythm Extremities: normal inspection, no pedal edema Laboratory Results Last 24 Hours Test 02/26/17 19:30 02/26/17 21:23 02/26/17 22:06 02/26/17 22:39 White Blood Count 9.19 K/uL 9.53 K/uL Red Blood Count 4.80 M/uL 4.52 M/uL Hemoglobin 15.6 g/dL 14.4 g/dL Hematocrit 44.2 % 41.9 % Mean Corpuscular Volume 92.1 fL 92.7 fL Mean Corpuscular Hemoglobin 32.5 pg 31.9 pg Mean Corpuscular Hemoglobin Concent 35.3 g/dl 34.4 g/dl Platelet Count 190 K/uL 183 K/uL Mean Platelet Volume 9.6 fL 10.4 fL Neutrophils (%) (Auto) 75.4 % 78.5 % Lymphocytes (%) (Auto) 18.5 % 13.3 % Monocytes (%) (Auto) 5.7 % 7.9 % Eosinophils (%) (Auto) 0.1 % 0.1 % Basophils (%) (Auto) 0.1 % 0.1 % Neutrophils # (Auto) 6.93 K/uL 7.48 K/uL Lymphocytes # (Auto) 1.70 K/uL 1.27 K/uL Monocytes # (Auto) 0.52 K/uL 0.75 K/uL Eosinophils # (Auto) 0.01 K/uL 0.01 K/uL Basophils # (Auto) 0.01 K/uL 0.01 K/uL RDW Standard Deviation 42.2 fL 42.9 fL RDW Coefficient of Variation 12.4 % 12.9 % Immature Granulocyte % (Auto) 0.2 % 0.1 % Immature Granulocyte # (Auto) 0.02 K/uL 0.01 K/uL Urine Color YELLOW Urine Appearance CLEAR Urine pH 6.5 Urine Specific Moran 1.020 Urine Protein NEG Urine Glucose (UA) NEG Urine Ketones TRACE Urine Occult Blood NEG Urine Nitrite NEG Urine Bilirubin NEG Urine Urobilinogen NEG Urine Leukocyte Esterase NEG Sodium Level 139 mmol/L Potassium Level 3.6 mmol/L Chloride Level 103 mmol/L Carbon Dioxide Level 29 mmol/L Anion Gap 7.0 mmol/L Blood Urea Nitrogen 21 mg/dl Creatinine 0.80 mg/dl Est Creatinine Clear Calc Drug Dose 103.8 ml/min Estimated GFR () 110.2 Estimated GFR (Non- 95.1 BUN/Creatinine Ratio 25.9 Random Glucose 128 mg/dl Calcium Level 8.7 mg/dl Total Bilirubin 0.5 mg/dl Direct Bilirubin 0.1 mg/dl Aspartate Amino Transf (AST/SGOT) 11 U/L Alanine Aminotransferase (ALT/SGPT) 23 U/L Alkaline Phosphatase 73 U/L Total Protein 6.6 gm/dl Albumin 3.2 gm/dl Lipase 49 U/L Thyroid Stimulating Hormone (TSH) 1.090 uIu/ml Salicylates Level < 1.7 mg/dl Acetaminophen Level < 2 ug/ml Test 02/26/17 23:44 02/27/17 00:15 02/27/17 06:08 02/27/17 11:49 Ammonia 33.0 umol/L Ethyl Alcohol mg/dL < 3.0 mg/dl Urine Opiates Screen NEG Urine Methadone, Qualitative NEG Urine Barbiturates NEG Urine Phencyclidine (PCP) Level NEG Ur Amphetamine/Methamphetamine NEG MDMA (Ecstasy) Screen NEG Urine Benzodiazepines Screen NEG Urine Cocaine Metabolite NEG Urine Marijuana (THC) NEG Bedside Glucose 123 mg/dl 112 mg/dl Assessment and Plan This is a 62 year old male with a PMH of DM2, HTN, Anxiety Disorder, Delusional Disorder Grandiose Type presents with unresponsiveness Unresponsiveness this seems like an intentional non-verbal by patient he responds to painful stimuli follows some commands patient had been in solitary confinement prior to coming here - likely psychiatric disorder related to solitary appreciate psych input currently no new recommendations, continue current medications Brain MRI and Head CT - negative for CVA TSH wnl monitor in tele HTN continue ABRAHAM-I DM2 hold oral agents insulin sliding scale BSGs ACHS DVT ppx SCDs FULL CODE
[2017-02-28] VITALS (7 sets, daily range): BP systolic 170–181; BP diastolic 84–89; PULSE 89–124; TEMP 36.5–37.1; O2SAT 97–99
[2017-02-28] MEDS: SODIUM CHLORIDE 0.9% 1000ML 1,000 ML IV SCH ×2 (05:58→17:15)
[2017-02-28] MEDS: INSULIN ASPART 100 UNITS/ML 3 ML PEN SC SCH ×4 (06:00→23:32)
[2017-02-28 06:49] LABS: HEMATOCRIT 39.5 % (42-52); HEMOGLOBIN 13.7 g/dL (14.0-18.0); MEAN CORPUSCULAR HEMOGLOBIN 31.6 pg (25-34); MEAN CORPUSCULAR HGB CONC 34.7 g/dl (32-36); MEAN PLATELET VOLUME 9.7 fL (7.4-10.4); PLATELET COUNT 160 K/uL (130-400); RED CELL DISTRIBUTION WIDTH CV 12.3 % (11.5-14.5); RED CELL DISTRIBUTION WIDTH SD 40.9 fL (36.4-46.3)
[2017-02-28 07:21] LABS: CALCIUM 8.9 mg/dl (8.5-10.1); CREATININE 0.76 mg/dl (0.60-1.40); POTASSIUM 3.8 mmol/L (3.5-5.1)
[2017-02-28] MEDS: ASPIRIN 81 MG ECTAB PO SCH (09:00)
[2017-02-28] MEDS: LISINOPRIL 10 MG TAB PO SCH (09:00)
[2017-02-28] MEDS: AMLODIPINE BESYLATE 5 MG TAB PO SCH (09:00)
[2017-02-28] MEDS: ATORVASTATIN 40 MG TAB PO SCH (09:00)
[2017-02-28] MEDS: ENALAPRILAT IV 1.25 MG in DEXTROSE 5% 25ML 25 ML IV PRN ×2 (09:15→13:28)
--- NOTE | 2017-02-28 16:21 | Progress Note ---
Subjective Date of Service: Feb 28, 2017. Subjective Pt evaluation today including: conversation w/ patient, physical exam, lab review, review of studies, review of inpatient medication list Saw/examined the patient in room 234 No verbal response, he repositions at times No change in his condition Has not eaten Problem List Medical Problems: (1) Catatonia Status: Acute Medications Current Inpatient Medications Medications (Trade) Dose Ordered Sig/Shari Route Start Time Stop Time Status Last Admin Dose Admin Sodium Chloride 1,000 ml @ 100 mls/hr Q10H IV 02/27/17 02:34 03/29/17 02:33 02/28/17 05:58 75 MLS/HR Insulin Aspart (novoLOG ASPART) SLIDING SCALE If C... Q6 SC 02/27/17 06:00 03/29/17 05:59 Glucose (Glucose 40% Gel) 15-30 GRAMS 15 GRAMS... UD PRN PO 02/27/17 02:45 03/29/17 02:44 Glucose (Glucose Chew Tab) 4-8 Tablets 4 Tabl... UD PRN PO 02/27/17 02:45 03/29/17 02:44 Dextrose (Dextrose 50% 50ML Syringe) 25-50ML OF 50% DW IV FOR... UD PRN IV 02/27/17 02:45 03/29/17 02:44 Glucagon (Glucagon Inj) 1 mg UD PRN SQ 02/27/17 02:45 03/29/17 02:44 Amlodipine Besylate (Norvasc Tab) 5 mg DAILY PO 02/27/17 09:00 03/29/17 08:59 Aspirin (Ecotrin Tab) 81 mg DAILY PO 02/27/17 09:00 03/29/17 08:59 Atorvastatin Calcium (Lipitor Tab) 40 mg DAILY PO 02/27/17 09:00 03/29/17 08:59 Lisinopril (Zestril Tab) 10 mg DAILY PO 02/27/17 09:00 03/29/17 08:59 Miscellaneous (Iv Fluids Completed) 1 ea PRN PRN N/A 02/27/17 05:00 02/27/18 04:59 Enalaprilat 1.25 mg/Dextrose 26 ml @ 100 mls/hr Q6H PRN IV 02/27/17 06:00 03/29/17 05:59 02/28/17 13:28 100 MLS/HR Metoprolol Tartrate (Lopressor Iv) 5 mg Q6 PRN IV 02/28/17 15:30 03/30/17 15:29 Objective Vital Signs Date Time Temp Pulse Resp B/P (MAP) Pulse Ox O2 Delivery O2 Flow Rate FiO2 02/28/17 16:00 Room Air 02/28/17 12:00 Room Air 02/28/17 11:51 37.0 96 20 181/89 (119) 99 Room Air 02/28/17 09:50 172/85 (114) 02/28/17 08:10 36.9 93 16 181/89 (119) 99 Room Air 02/28/17 08:00 Room Air 02/28/17 04:02 Room Air 02/28/17 03:42 37.1 89 16 174/84 (114) 99 Room Air 02/28/17 00:00 Room Air 02/27/17 23:27 36.4 84 17 168/83 (111) 100 02/27/17 23:11 180/89 (119) 02/27/17 20:00 95 Room Air 02/27/17 19:50 36.9 88 18 185/94 (124) 96 Physical Exam General Appearance: no apparent distress Respiratory/Chest: lungs clear, normal breath sounds, no respiratory distress, no accessory muscle use Cardiovascular: no edema, no gallop, no JVD, no murmur, + tachycardia Laboratory Results Last 24 Hours Test 02/27/17 18:55 02/27/17 19:15 02/27/17 23:46 02/28/17 06:01 Bedside Glucose 110 mg/dl 110 mg/dl White Blood Count 8.30 K/uL Red Blood Count 4.34 M/uL Hemoglobin 13.7 g/dL Hematocrit 39.5 % Mean Corpuscular Volume 91.0 fL Mean Corpuscular Hemoglobin 31.6 pg Mean Corpuscular Hemoglobin Concent 34.7 g/dl RDW Standard Deviation 40.9 fL RDW Coefficient of Variation 12.3 % Platelet Count 160 K/uL Mean Platelet Volume 9.7 fL Sodium Level 136 mmol/L Potassium Level 3.8 mmol/L Chloride Level 104 mmol/L Carbon Dioxide Level 26 mmol/L Anion Gap 6.0 mmol/L Blood Urea Nitrogen 18 mg/dl Creatinine 0.76 mg/dl Est Creatinine Clear Calc Drug Dose 109.2 ml/min Estimated GFR () 112.5 Estimated GFR (Non- 97.1 BUN/Creatinine Ratio 23.4 Random Glucose 115 mg/dl Calcium Level 8.9 mg/dl Test 02/28/17 06:04 02/28/17 11:26 Bedside Glucose 113 mg/dl 126 mg/dl Assessment and Plan This is a 62 year old male with a PMH of DM2, HTN, Anxiety Disorder, Delusional Disorder Grandiose Type presents with unresponsiveness Unresponsiveness 1/3 no acute process appreciate mental health input, no new medications can likely d/c in 1-2 days if BP and HR improve 1/2 this seems like an intentional non-verbal by patient he responds to painful stimuli follows some commands patient had been in solitary confinement prior to coming here - likely psychiatric disorder related to solitary appreciate psych input currently no new recommendations, continue current medications Brain MRI and Head CT - negative for CVA TSH wnl monitor in tele HTN IV Vasotec and IV Lopressor added DM2 hold oral agents insulin sliding scale BSGs ACHS DVT ppx SCDs FULL CODE
[2017-02-28] MEDS: METOPROLOL TARTRATE 1 MG/ML VIAL IV PRN (23:34)
[2017-03-01] VITALS (8 sets, daily range): BP systolic 129–180; BP diastolic 64–97; PULSE 99–140; TEMP 36.9–37.5; O2SAT 96–100
[2017-03-01] MEDS: SODIUM CHLORIDE 0.9% 1000ML 1,000 ML IV SCH ×2 (02:14→15:10)
[2017-03-01] MEDS ORDERED: METOPROLOL TARTRATE 1 MG/ML VIAL IV ONE (04:09)
[2017-03-01] MEDS: ENALAPRILAT IV 1.25 MG in DEXTROSE 5% 25ML 25 ML IV PRN (05:48)
[2017-03-01] MEDS: INSULIN ASPART 100 UNITS/ML 3 ML PEN SC SCH ×3 (06:00→18:00)
[2017-03-01 07:09] LABS: HEMATOCRIT 39.4 % (42-52); HEMOGLOBIN 13.7 g/dL (14.0-18.0); MEAN CELL VOLUME 90.6 fL (80-100); MEAN CORPUSCULAR HEMOGLOBIN 31.5 pg (25-34); MEAN CORPUSCULAR HGB CONC 34.8 g/dl (32-36); MEAN PLATELET VOLUME 9.3 fL (7.4-10.4); PLATELET COUNT 170 K/uL (130-400); RED CELL DISTRIBUTION WIDTH CV 12.4 % (11.5-14.5); RED CELL DISTRIBUTION WIDTH SD 41.1 fL (36.4-46.3); WHITE BLOOD COUNT 8.85 K/uL (4.8-10.8)
[2017-03-01 07:36] LABS: CALCIUM 8.6 mg/dl (8.5-10.1); CREATININE 0.81 mg/dl (0.60-1.40); POTASSIUM 3.7 mmol/L (3.5-5.1)
[2017-03-01] MEDS: METOPROLOL TARTRATE 1 MG/ML VIAL IV PRN ×2 (08:28→13:10)
[2017-03-01] MEDS: ASPIRIN 81 MG ECTAB PO SCH (09:00)
[2017-03-01] MEDS: LISINOPRIL 10 MG TAB PO SCH (09:00)
[2017-03-01] MEDS: AMLODIPINE BESYLATE 5 MG TAB PO SCH (09:00)
[2017-03-01] MEDS: ATORVASTATIN 40 MG TAB PO SCH (09:00)
[2017-03-01] MEDS ORDERED: ENALAPRILAT IV 2.5 MG in DEXTROSE 5% 25ML 25 ML IV STA (11:01)
[2017-03-01] MEDS ORDERED: HALOPERIDOL LACTATE 5 MG/ML 1 ML VIAL IV STA (13:37)
[2017-03-01] MEDS ORDERED: HALOPERIDOL LACTATE 5 MG/ML 1 ML VIAL ONE (13:40)
--- NOTE | 2017-03-01 19:07 | Progress Note ---
Subjective Date of Service: Mar 01, 2017. Subjective Pt evaluation today including: conversation w/ patient, physical exam, lab review, review of studies, review of inpatient medication list Saw/examined the patient in room 234 patient is now verbal, but very agitated and anxious Refusing to drink water Refusing to take anything PO He is speaking to himself and does not give any meaningful answers Problem List Medical Problems: (1) Catatonia Status: Acute Medications Current Inpatient Medications Medications (Trade) Dose Ordered Sig/Shari Route Start Time Stop Time Status Last Admin Dose Admin Sodium Chloride 1,000 ml @ 100 mls/hr Q10H IV 02/27/17 02:34 03/29/17 02:33 03/01/17 15:10 100 MLS/HR Insulin Aspart (novoLOG ASPART) SLIDING SCALE If C... Q6 SC 02/27/17 06:00 03/29/17 05:59 Glucose (Glucose 40% Gel) 15-30 GRAMS 15 GRAMS... UD PRN PO 02/27/17 02:45 03/29/17 02:44 Glucose (Glucose Chew Tab) 4-8 Tablets 4 Tabl... UD PRN PO 02/27/17 02:45 03/29/17 02:44 Dextrose (Dextrose 50% 50ML Syringe) 25-50ML OF 50% DW IV FOR... UD PRN IV 02/27/17 02:45 03/29/17 02:44 Glucagon (Glucagon Inj) 1 mg UD PRN SQ 02/27/17 02:45 03/29/17 02:44 Amlodipine Besylate (Norvasc Tab) 5 mg DAILY PO 02/27/17 09:00 03/29/17 08:59 Aspirin (Ecotrin Tab) 81 mg DAILY PO 02/27/17 09:00 03/29/17 08:59 Atorvastatin Calcium (Lipitor Tab) 40 mg DAILY PO 02/27/17 09:00 03/29/17 08:59 Lisinopril (Zestril Tab) 10 mg DAILY PO 02/27/17 09:00 03/29/17 08:59 Miscellaneous (Iv Fluids Completed) 1 ea PRN PRN N/A 02/27/17 05:00 02/27/18 04:59 Enalaprilat 1.25 mg/Dextrose 26 ml @ 100 mls/hr Q6H PRN IV 02/27/17 06:00 03/29/17 05:59 03/01/17 05:48 100 MLS/HR Metoprolol Tartrate (Lopressor Iv) 5 mg Q6 PRN IV 02/28/17 15:30 03/30/17 15:29 03/01/17 13:10 5 MG Objective Vital Signs Date Time Temp Pulse Resp B/P (MAP) Pulse Ox O2 Delivery O2 Flow Rate FiO2 03/01/17 16:00 Room Air 03/01/17 15:43 37.5 117 20 142/86 (104) 98 Room Air 03/01/17 13:10 178 161/86 03/01/17 12:39 36.9 108 20 172/92 (118) 96 Room Air 03/01/17 12:00 Room Air 03/01/17 08:28 99 180/97 03/01/17 08:00 Room Air 03/01/17 07:34 37.2 99 24 180/97 (124) 99 Room Air 03/01/17 05:12 102 172/93 (119) 03/01/17 04:23 136 03/01/17 04:09 37.2 140 20 170/90 (116) 100 Room Air 03/01/17 04:01 Room Air 03/01/17 00:20 158/94 (115) 03/01/17 00:00 Room Air 02/28/17 23:34 36.5 124 20 97 Room Air 02/28/17 23:34 120 182/96 02/28/17 20:00 Nasal Cannula 2.0 02/28/17 19:40 36.5 22 170/88 (115) 98 Room Air Physical Exam General Appearance: no apparent distress Respiratory/Chest: no respiratory distress, no accessory muscle use Cardiovascular: no edema, no murmur, + tachycardia Neurologic/Psychiatric: + depressed affect, + pertinent finding (speaking to himself; no meaningful answers) Laboratory Results Last 24 Hours Test 02/28/17 20:35 02/28/17 23:32 03/01/17 06:02 03/01/17 06:25 Bedside Glucose 117 mg/dl 111 mg/dl 151 mg/dl White Blood Count 8.85 K/uL Red Blood Count 4.35 M/uL Hemoglobin 13.7 g/dL Hematocrit 39.4 % Mean Corpuscular Volume 90.6 fL Mean Corpuscular Hemoglobin 31.5 pg Mean Corpuscular Hemoglobin Concent 34.8 g/dl RDW Standard Deviation 41.1 fL RDW Coefficient of Variation 12.4 % Platelet Count 170 K/uL Mean Platelet Volume 9.3 fL Sodium Level 138 mmol/L Potassium Level 3.7 mmol/L Chloride Level 107 mmol/L Carbon Dioxide Level 26 mmol/L Anion Gap 5.0 mmol/L Blood Urea Nitrogen 21 mg/dl Creatinine 0.81 mg/dl Est Creatinine Clear Calc Drug Dose 102.5 ml/min Estimated GFR () 109.6 Estimated GFR (Non- 94.6 BUN/Creatinine Ratio 25.8 Random Glucose 126 mg/dl Calcium Level 8.6 mg/dl Test 03/01/17 11:16 03/01/17 18:07 Bedside Glucose 116 mg/dl 126 mg/dl Assessment and Plan This is a 62 year old male with a PMH of DM2, HTN, Anxiety Disorder, Delusional Disorder Grandiose Type presents with unresponsiveness Unresponsiveness Agitation vs. Malingering 03/01 patient has been agitated today; possibly due to upcoming discharge had to give 2mg of IV Haldol, which seemed to have calmed him down psychiatry re-consulted for further input 02/28 no acute process appreciate mental health input, no new medications can likely d/c in 1-2 days if BP and HR improve 1/2 this seems like an intentional non-verbal by patient he responds to painful stimuli follows some commands patient had been in solitary confinement prior to coming here - likely psychiatric disorder related to solitary appreciate psych input currently no new recommendations, continue current medications Brain MRI and Head CT - negative for CVA TSH wnl monitor in tele HTN IV Vasotec and IV Lopressor added DM2 hold oral agents insulin sliding scale BSGs ACHS DVT ppx SCDs FULL CODE
[2017-03-02] VITALS (9 sets, daily range): BP systolic 117–169; BP diastolic 73–86; PULSE 106–124; TEMP 36.9–37.5; O2SAT 89–99
[2017-03-02] MEDS: SODIUM CHLORIDE 0.9% 1000ML 1,000 ML IV SCH ×2 (00:22→10:18)
[2017-03-02] MEDS: INSULIN ASPART 100 UNITS/ML 3 ML PEN SC SCH ×2 (06:00)
[2017-03-02] MEDS: AMLODIPINE BESYLATE 5 MG TAB PO SCH (09:43)
[2017-03-02] MEDS: ASPIRIN 81 MG ECTAB PO SCH (09:44)
[2017-03-02] MEDS: LISINOPRIL 10 MG TAB PO SCH (09:44)
[2017-03-02] MEDS: ATORVASTATIN 40 MG TAB PO SCH (09:44)
[2017-03-02] MEDS ORDERED: NURSING VERBAL MED ORDER ONE (11:00)
--- NOTE | 2017-03-02 11:21 | Psychiatric Progress Notes ---
Psychiatric Progress Note Date of Service Mar 02, 2017. Notes ID: Patient reviewed with liaison nurse. Patient initially seen for consult by ZANDRA Jason on 02/27 but was non-verbal at that time. CC: unspecified psychosis/delirium vs malingering HPI: reviewed limited halfway records, guards at bedside have little info on his placement at [facility], dx on chart from halfway include anxiety and delusional disorder. The patient reportedly has no memory of not eating, is readily taking breakfast. Disorganized in that he clearly talks about being in groups at the halfway but then insists he has no memory of getting "there or here" and that he is getting today. He is certainly improved from admission and is taking PO. ROS: He did receive 2 mg of Haldol for agitation. MRI revealed possible pituitary adenoma but no acute issue. Synthetics are still pending on urine tox. MSE: alert, cooperative as able, more attention/memory, thoughts tangential, denied SI/HI, denied masters and did not appear to be responding to internal stimuli. taking PO. Imp: resolving delirium vs exacerbation of underlying psychosis. doubt anticholinergic delirium as meds monitored in halfway, cannot exclude malingering Plan: reports are that symptoms worsened yesterday in the context of being told he would be discharged back to halfway, would suggest premedicating patient with Haldol 5 mg, repeat if necessary.
[2017-03-02] MEDS ORDERED: LORAZEPAM 2 MG/ML 1 ML VIAL IV STA (11:53)
--- NOTE | 2017-03-02 14:23 | Progress Note ---
Subjective Date of Service: Mar 02, 2017. Subjective Pt evaluation today including: conversation w/ patient, physical exam, lab review, review of studies, review of inpatient medication list Saw/examined the patient in room 234 He's doing better today, he ate his breakfast completely becoming agitated this afternoon. +dry mouth Problem List Medical Problems: (1) Catatonia Status: Acute Review of Systems Difficult to assess because of how agitated patient is Medications Current Inpatient Medications Medications (Trade) Dose Ordered Sig/Shari Route Start Time Stop Time Status Last Admin Dose Admin Sodium Chloride 1,000 ml @ 100 mls/hr Q10H IV 02/27/17 02:34 03/29/17 02:33 03/02/17 10:18 100 MLS/HR Glucose (Glucose 40% Gel) 15-30 GRAMS 15 GRAMS... UD PRN PO 02/27/17 02:45 03/29/17 02:44 Glucose (Glucose Chew Tab) 4-8 Tablets 4 Tabl... UD PRN PO 02/27/17 02:45 03/29/17 02:44 Dextrose (Dextrose 50% 50ML Syringe) 25-50ML OF 50% DW IV FOR... UD PRN IV 02/27/17 02:45 03/29/17 02:44 Glucagon (Glucagon Inj) 1 mg UD PRN SQ 02/27/17 02:45 03/29/17 02:44 Amlodipine Besylate (Norvasc Tab) 5 mg DAILY PO 02/27/17 09:00 03/29/17 08:59 03/02/17 09:43 5 MG Aspirin (Ecotrin Tab) 81 mg DAILY PO 02/27/17 09:00 03/29/17 08:59 03/02/17 09:44 81 MG Atorvastatin Calcium (Lipitor Tab) 40 mg DAILY PO 02/27/17 09:00 03/29/17 08:59 03/02/17 09:44 40 MG Lisinopril (Zestril Tab) 10 mg DAILY PO 02/27/17 09:00 03/29/17 08:59 03/02/17 09:44 10 MG Miscellaneous (Iv Fluids Completed) 1 ea PRN PRN N/A 02/27/17 05:00 02/27/18 04:59 Enalaprilat 1.25 mg/Dextrose 26 ml @ 100 mls/hr Q6H PRN IV 02/27/17 06:00 03/29/17 05:59 03/01/17 05:48 100 MLS/HR Metoprolol Tartrate (Lopressor Iv) 5 mg Q6 PRN IV 02/28/17 15:30 03/30/17 15:29 03/01/17 13:10 5 MG Insulin Aspart (novoLOG ASPART) SLIDING SCALE If C... ACHS SC 03/02/17 16:15 04/01/17 16:14 Objective Vital Signs Date Time Temp Pulse Resp B/P (MAP) Pulse Ox O2 Delivery O2 Flow Rate FiO2 03/02/17 12:00 98 Room Air 03/02/17 11:31 37.0 113 18 158/76 (103) 97 Room Air 03/02/17 08:35 98 Room Air 03/02/17 07:29 36.9 106 18 117/86 (96) 98 Room Air 03/02/17 04:21 36.9 110 16 169/83 (111) 99 Room Air 03/02/17 04:00 Room Air 03/02/17 00:01 Room Air 03/01/17 23:22 37.1 106 20 129/64 (85) 97 Room Air 03/01/17 20:00 Room Air 03/01/17 19:30 37.5 105 20 142/80 (100) 98 Room Air 03/01/17 16:00 Room Air 03/01/17 15:43 37.5 117 20 142/86 (104) 98 Room Air Physical Exam General Appearance: no apparent distress Respiratory/Chest: lungs clear, normal breath sounds, no respiratory distress, no accessory muscle use Cardiovascular: regular rate, rhythm, no edema, no murmur Neurologic/Psychiatric: + pertinent finding (+agitated, anxious, both hands cuffed to the bed, guards at bedside trying to control him) Laboratory Results Last 24 Hours Test 03/01/17 18:07 03/02/17 00:20 03/02/17 06:07 03/02/17 10:51 Bedside Glucose 126 mg/dl 108 mg/dl 105 mg/dl 144 mg/dl Assessment and Plan This is a 62 year old male with a PMH of DM2, HTN, Anxiety Disorder, Delusional Disorder Grandiose Type presents with unresponsiveness Possible Psychosis Malingering? 03/02 plan today is to d/c back to snf appreciate psychiatry input resolving delirium vs. psychosis (possibly related to solitary confinement) either way, plan today is to d/c back to snf, will attempt to premedicate with 5mg of Haldol 03/01 patient has been agitated today; possibly due to upcoming discharge had to give 2mg of IV Haldol, which seemed to have calmed him down psychiatry re-consulted for further input 02/28 no acute process appreciate mental health input, no new medications can likely d/c in 1-2 days if BP and HR improve 1/2 this seems like an intentional non-verbal by patient he responds to painful stimuli follows some commands patient had been in solitary confinement prior to coming here - likely psychiatric disorder related to solitary appreciate psych input currently no new recommendations, continue current medications Brain MRI and Head CT - negative for CVA TSH wnl monitor in tele HTN IV Vasotec and IV Lopressor added DM2 hold oral agents insulin sliding scale BSGs ACHS DVT ppx SCDs FULL CODE
--- NOTE | 2017-03-02 14:25 | Discharge Instructions ---
Discharge Instructions Date of Service Mar 02, 2017. Admission Reason for Admission: AMS Discharge Discharge Diagnosis / Problem: Possible Psychosis, Delirium Discharge Goals Goal(s): Decrease discomfort, Improve function, Diagnostic testing, Therapeutic intervention Activity Recommendations Activity Limitations: resume your previous activity . Instructions / Follow-Up Instructions / Follow-Up Patient should follow-up with psychiatry and medications adjusted Current Hospital Diet Patient's current hospital diet: Regular Diet Discharge Diet Recommended Diet: Regular Diet Pending Studies Studies pending at discharge: no Medical Emergencies . Who to Call and When: Medical Emergencies: If at any time you feel your situation is an emergency, please call 911 immediately. . Non-Emergent Contact Non-Emergency issues call your: Primary Care Provider . . "Provider Documentation" section prepared by Dean Jordan. . VTE Core Measure Inpt VTE Proph given/why not?: SCD's
--- NOTE | 2017-03-02 14:27 | Discharge Summary ---
Discharge Summary Date of Service Mar 02, 2017. Discharge Summary Admission Date: Feb 27, 2017 at 01:23 Discharge Date: Mar 02, 2017 Discharge Disposition: Home Principal Diagnosis: Possible Psychosis Malingering Delirium Anxiety Delusional Disorder Medication Reconciliation Continued Medications: Amlodipine (Norvasc) 5 Mg Tab 5 MG PO DAILY, TAB Aspirin (Aspirin Ec) 81 Mg Tab 81 MG PO DAILY Atorvastatin (Lipitor) 40 Mg Tab 40 MG PO DAILY, TAB Diphenhydramine Hcl (Diphenhydramine Hcl) 50 Mg Cap 100 MG PO HS, CAP Glimepiride (Glimepiride) 1 Mg Tab 1 MG PO QAM, TAB 3 Refills Hydrochlorothiazide (Hydrochlorothiazide) 25 Mg Tab 25 MG PO DAILY Lisinopril (Zestril) 10 Mg Tab 10 MG PO DAILY, TAB Nortriptyline (Pamelor) 25 Mg Cap 50 MG PO DAILY, CAP Admission Information HPI (per Admitting provider): 62 year old male, inmate of [facility], with history of DM 2, HTN, Anxiety, and other problems noted below presenting with altered mental status. History difficult to obtain as patient seemed to be awake but was keeping his eyes close and was not responding to questions. Per ER records, patient was found in his cell unresponsive, no history of trauma , last seen at baseline 7 hours earlier. At the ER, neuro exam by Dr. Cleveland revealed: "Responsive to painful stimulus and then will follow commands. Noted after he is alert, he will close his eyes and fight to keep them closed when I attempt to open them." Furthermore, during attempts to insert a nasal trumpet and sumner catheter, patient would awaken, and shout curses. CT head is unremarkable, urine drug screen and blood tests were unrevealing. On my exam, guards at the bedside, patient had his eyes closed and was not responding to my questions. Occasionally, he would raise his eyebrows to some of my questions, followed my command that he turn to his side for lung exam. Otherwise, shuts his eyes tight when I try to examine them. When I raised his arm over his chest and lets it go, the arm would fall to his side. No signs of distress, pain. Neck is supple. The guards on duty could not supplement the history. Physical Exam (per Admitting): General Appearance: WD/WN, no apparent distress Head: normocephalic, atraumatic Eyes: normal inspection, PERRL, EOMI, sclerae normal ENT: normal ENT inspection Neck: supple, no adenopathy, thyroid normal, no JVD, trachea midline Respiratory/Chest: chest non-tender, lungs clear, normal breath sounds, no respiratory distress, no accessory muscle use Cardiovascular: regular rate, rhythm, no edema, no JVD, no murmur Abdomen/GI: normal bowel sounds, non tender, soft Back: normal inspection, no CVA tenderness Extremities/Musculoskelatal: normal inspection, no calf tenderness, no pedal edema Neurologic/Psych: + pertinent finding (difficult to perform as patient was uncooperative, pupils 3mm equal round reactive to light, moves all extremities equally, grimaces to pain) Skin: normal color, warm/dry, no rash Lymphatic: no adenopathy Hospital Course This is a 62 year old male with a PMH of DM2, HTN, Anxiety Disorder, Delusional Disorder Grandiose Type presents with unresponsiveness Possible Psychosis Malingering? 03/02 plan today is to d/c back to shelter appreciate psychiatry input resolving delirium vs. psychosis (possibly related to solitary confinement) either way, plan today is to d/c back to shelter, will attempt to premedicate with 5mg of Haldol 03/01 patient has been agitated today; possibly due to upcoming discharge had to give 2mg of IV Haldol, which seemed to have calmed him down psychiatry re-consulted for further input 02/28 no acute process appreciate mental health input, no new medications can likely d/c in 1-2 days if BP and HR improve 1/2 this seems like an intentional non-verbal by patient he responds to painful stimuli follows some commands patient had been in solitary confinement prior to coming here - likely psychiatric disorder related to solitary appreciate psych input currently no new recommendations, continue current medications Brain MRI and Head CT - negative for CVA TSH wnl monitor in tele HTN IV Vasotec and IV Lopressor added DM2 hold oral agents insulin sliding scale BSGs ACHS DVT ppx SCDs FULL CODE Total time spent on discharge = 40 minutes This includes examination of the patient, discharge planning, medication reconciliation, and communication with other providers. Discharge Instructions Patient should follow-up with psychiatry and medications adjusted
[2017-03-02] MEDS ORDERED: HALOPERIDOL LACTATE 5 MG/ML 1 ML VIAL IM PRN (14:30)
[2017-03-02] MEDS ORDERED: INSULIN ASPART 100 UNITS/ML 3 ML PEN SC SCH (16:15)
== END 2017-03-02 19:22 | disposition home or self-care (01) ==
LOC: C.EDB 19:22 → C.2T 02-27 01:23 → EDBEDREQ 02-27 01:28 → ENRESERV 02-27 01:39
PROVIDERS: ADMIT Internal Medicine; ATTEND Family Medicine
DX: R41.0 Disorientation, unspecified (principal); F20.2 Catatonic schizophrenia; F41.9 Anxiety disorder, unspecified; E11.9 Type 2 diabetes mellitus without complications; I10 Essential (primary) hypertension; E78.5 Hyperlipidemia, unspecified; Z79.82 Long term (current) use of aspirin; Z79.84 Long term (current) use of oral hypoglycemic drugs

== ENCOUNTER 2019-07-09 17:14 | Inpatient (IN) ==
--- NOTE | 2019-07-09 18:08 | Emergency Department Note ---
Impression & Plan Altered mental status, HTN (hypertension), Atrial tachycardia, Leukocytosis, Hyperglycemia ED Provider Note NAME: AMOR [id number] NOEL AGE: 64 SEX: M : 1955 ARRIVES VIA: Ambulance INFORMANT: Patient, vince ED PROVIDER(S): Huy German DO CHIEF COMPLAINT: Altered mental status HPI: Patient is a 64-year-old male with a past medical history of anxiety and diabetes who presents the ER for confusion. Per report from the senior care they note that this has been present for the past 3 days. They note that he has been unresponsive not talking or communicating. Guards note that he has been completely unresponsive prior to transport to the ER. They note that he needs continued direction to perform tasks. They note that this is new for the patient. He has been in the psychiatric [facility] while this was going on to keep a closer eye on him. Patient denies any other complaints at this time. He notes that he was sent here to get checked out but notes that nothing is bothering him. Pt denies headache, change in vision, fevers, chest pain, shortness of breath, nausea, vomiting, diarrhea, pain with urination, and melena. Denies any suicidal or homicidal ideations. He admits to smoking teabags twice a day but notes he did not do this today. ROS: See above HPI for pertinent positives & negatives. A total of 10 systems reviewed and were otherwise negative. PAST MEDICAL HISTORY:See Below PAST SURGICAL HISTORY:See Below FAMILY HISTORY:See Below SOCIAL HISTORY:See Below HOME MEDICATIONS:See Below ALLERGIES:See Below VITALS:See Below PHYSICAL EXAMINATION: GENERAL: Sitting up in bed, alert, well appearing, well nourished, no distress, non-toxic, shackled to the bed with the right upper extremity and left lower extremity EYE EXAM: normal conjunctiva. PERRL and EOM's intact. OROPHARYNX: no exudate, no erythema, lips, buccal mucosa, and tongue normal and mucous membranes are moist NECK: supple, no nuchal rigidity, no adenopathy, non-tender LUNGS: Clear to auscultation. Normal chest wall mechanics HEART: no murmurs, S1 normal and S2 normal ABDOMEN: abdomen soft, non-tender, normo-active bowel sounds, no masses, no rebound or guarding. BACK: Back is symmetrical on inspection and there is no deformity, no midline tenderness, no CVA tenderness. SKIN: no rashes and no bruising UPPER EXTREMITIES: upper extremities are grossly normal. LOWER EXTREMITIES: No pitting edema. NEURO EXAM: Normal sensorium/oriented to person, place, year and month, cranial nerves II-XII intact, normal speech, no weakness of arms, no weakness of legs. No drift. Finger to nose intact. Gross sensation intact. MEDICAL DECISION MAKING: Patient is a 64-year-old male who presents the ER for confusion which is been present for the past 3 days. He is well-known to the senior care staff and they note that this is completely out of his norm. Normally when he has a psychiatric issue this resulted in agitation. Recently he does not know where he was and has been unable to perform day-to-day tasks. Vitals show that he is hypertensive and tachycardic. IV was established blood work was obtained although extremely difficult. Labs show mild leukocytosis. No significant anemia. BMP with slightly elevated BUN. LFTs bilirubin and troponin was negative. Lipase was normal. UA was contaminated with multiple epithelial cells. Salicylates and acetaminophen were negative. Tox was negative. CT head was negative. Chest x-ray was unremarkable. He was given 2 L IV fluids. Heart rate still remained up. He was given IV Lopressor. Ammonia was still pending upon admission. EKG was nondiagnostic. Discussed with the senior care nurse notes that this is significantly out of his norm and they feel comfortable with him going back. Discussed with the hospitalist for observation. Triage Nursing notes reviewed. Prior medical records reviewed Vital Signs: reviewed and remarkable for hypertensive and tachycardic Differential diagnosis: Differential diagnoses includes but is not limited to toxic, metabolic, infectious, traumatic, cardiac, neurologic, hematologic, psychiatric and i nflammatory etiologies. ER treatment provided: See below Diagnostics interpreted by me: ECG: Sinus tachycardia rate of 101 Normal axis No PVCs Normal QTC Cardiac Monitoring: An order was placed for continuous cardiac monitoring. The monitor shows a rate of 93 with sinus rhythm. Laboratory studies: As stated above and show below. Imaging studies: CT head shows no acute pathology or bleed. Portable AP upright 1 view of the chest shows no focal infiltrate. Consultation(s): Discussed with Dr. Schilling who from [facility] for observation. ED COURSE: Procedures: none Critical Care: None Past Med/Surg History Social History Smoking Status: Unknown if ever smoked Allergies Allergies Allergy/AdvReac Type Severity Reaction Status Date / Time No Known Allergies Allergy Unverified 02/26/17 19:38 Home Meds Home Medications Medication Instructions Recorded Confirmed amlodipine 5 mg PO DAILY 07/09/19 07/09/19 aripiprazole 15 mg PO BID 07/09/19 07/09/19 aspirin [Aspirin Low Dose] 81 mg PO DAILY 07/09/19 07/09/19 atorvastatin 40 mg PO HS 07/09/19 07/09/19 diphenhydramine HCl 100 mg PO HS 07/09/19 07/09/19 glimepiride 1 mg PO QAM 07/09/19 07/09/19 hydrochlorothiazide 25 mg PO DAILY 07/09/19 07/09/19 irbesartan 150 mg PO DAILY 07/09/19 07/09/19 Results & Data (ED) Vital Signs Vital Signs - 24 hr 07/09/19 17:23 07/09/19 17:30 07/09/19 18:00 Temperature 36.8 C Temperature Source Oral Pulse Rate 112 H 108 H 108 H Pulse Rate from SpO2 Sensor 107 H Respiratory Rate 20 15 16 Blood Pressure 164/81 H 178/82 H 174/95 H Blood Pressure Mean 108 104 122 Pulse Oximetry 97 98 Oxygen Delivery Method Room Air Sepsis Recent Fever Within 48 Hours No Sepsis New/Unexplained Change in Mental Status Yes Sepsis Action Taken by Nursing No Action Required 07/09/19 18:30 07/09/19 18:49 07/09/19 19:00 Temperature Temperature Source Pulse Rate 101 H 98 H Pulse Rate from SpO2 Sensor Respiratory Rate 14 19 Blood Pressure 150/80 H Blood Pressure Mean 99 Pulse Oximetry 98 Oxygen Delivery Method Room Air Room Air Sepsis Recent Fever Within 48 Hours Sepsis New/Unexplained Change in Mental Status Sepsis Action Taken by Nursing 07/09/19 20:08 07/09/19 20:30 07/09/19 21:00 Temperature Temperature Source Pulse Rate 96 H 113 H 113 H Pulse Rate from SpO2 Sensor 96 H Respiratory Rate 15 15 18 Blood Pressure 168/85 H 163/110 H 177/86 H Blood Pressure Mean 116 130 109 Pulse Oximetry 97 Oxygen Delivery Method Sepsis Recent Fever Within 48 Hours Sepsis New/Unexplained Change in Mental Status Sepsis Action Taken by Nursing 07/09/19 21:30 Temperature Temperature Source Pulse Rate 109 H Pulse Rate from SpO2 Sensor Respiratory Rate 17 Blood Pressure 184/91 H Blood Pressure Mean 107 Pulse Oximetry Oxygen Delivery Method Sepsis Recent Fever Within 48 Hours Sepsis New/Unexplained Change in Mental Status Sepsis Action Taken by Nursing Laboratory Data Result diagrams: 07/09/19 20:48 07/09/19 20:48 Lab Results 07/09/19 07/09/19 07/09/19 Range/Units 18:45 18:45 20:07 WBC Cancelled RBC Cancelled Hgb Cancelled Hct Cancelled MCV Cancelled MCH Cancelled MCHC Cancelled RDW Std Deviation Cancelled RDW Coeff of Shukri Cancelled Plt Count Cancelled MPV Cancelled Immature Gran % (Auto) Cancelled Neut % (Auto) Cancelled Lymph % (Auto) Cancelled [place] % (Auto) Cancelled Eos % (Auto) Cancelled Baso % (Auto) Cancelled Immature Gran # (Auto) Cancelled Neut # (Auto) Cancelled Lymph # (Auto) Cancelled [place] # (Auto) Cancelled Eos # (Auto) Cancelled Baso # (Auto) Cancelled Absolute Nucleated RBC Cancelled Nucleated RBC % (auto) Cancelled Neutrophils % (Manual) Cancelled Band Neutrophils % Cancelled Lymphocytes % (Manual) Cancelled Prolymphocyte % Cancelled Reactive Lymphs % (Man) Cancelled Monocytes % (Manual) Cancelled Eosinophils % (Manual) Cancelled Basophils % (Manual) Cancelled Metamyelocytes % (Man) Cancelled Myelocytes % (Man) Cancelled Promyelocytes % (Man) Cancelled Blast Cells % (Manual) Cancelled Plasma Cell % (Manual) Cancelled Other Cells % Cancelled Nucleated RBC % Cancelled Neutrophils # (Manual) Cancelled Band Neutrophils # Cancelled Total Absolute Neuts Cancelled Lymphocytes # (Manual) Cancelled Prolymphocyte # Cancelled Reactive Lymphs # Cancelled Total Abs Lymphocytes Cancelled Monocytes # (Manual) Cancelled Eosinophils # (Manual) Cancelled Basophils # (Manual) Cancelled Metamyelocytes # (Man) Cancelled Myelocytes # (Manual) Cancelled Promyelocytes # (Man) Cancelled Blast Cells # (Man) Cancelled Plasma Cell # (Manual) Cancelled Other Cells # Cancelled Nucleated RBCs # (Man) Cancelled Hypersegmented Neuts Cancelled Hyposegmented Neuts Cancelled Hypogranular Neuts Cancelled Large Granular Lymphs Cancelled # Lrg Granular Lymphs Cancelled Hairy Cells Cancelled Smudge Cells Cancelled Toxic Granulation Cancelled Toxic Vacuolation Cancelled Dohle Bodies Cancelled Mary Ellen Rods Cancelled Platelet Estimate Cancelled Hypogranular Platelets Cancelled Clumped Platelets Cancelled Giant Platelets Cancelled Platelet Satelliting Cancelled RBC Morphology Cancelled Polychromasia Cancelled Hypochromasia Cancelled Poikilocytosis Cancelled Basophilic Stippling Cancelled Anisocytosis Cancelled Microcytosis Cancelled Macrocytosis Cancelled Spherocytes Cancelled Pappenheimer Bodies Cancelled Sickle Cells Cancelled Target Cells Cancelled Tear Drop Cells Cancelled Ovalocytes Cancelled Stomatocytes Cancelled [place] Bodies Cancelled Echinocytes Cancelled Acanthocytes (Spur) Cancelled Rouleaux Cancelled RBC Agglutinates Cancelled Schistocytes Cancelled RBC Morph Comment Cancelled Sezary Cell Cancelled PT (9.0-12.0) Seconds INR (0.9-1.1) Sodium Potassium Chloride Carbon Dioxide Anion Gap BUN Creatinine Est Cr Clr Drug Dosing Est GFR ( Amer) Est GFR (Non-Af Amer) BUN/Creatinine Ratio Glucose Calcium Phosphorus (2.5-4.9) mg/dl Magnesium Total Bilirubin AST ALT Alkaline Phosphatase Total Creatine Kinase Troponin I Total Protein Albumin Globulin Albumin/Globulin Ratio Lipase (73-393) U/L TSH Urine Color Dark Yellow Urine Appearance Cloudy A (Clear) Urine pH 5.0 (4.5-7.5) Ur Specific Bee 1.025 (1.000-1.030) Urine Protein 1+ H (Negative) Urine Glucose (UA) Trace H (Negative) Urine Ketones Trace H (Negative) Urine Blood Trace H (Negative) Urine Nitrite Negative (Negative) Urine Bilirubin Negative (Negative) Urine Urobilinogen Negative (Negative) Ur Leukocyte Esterase Negative (Negative) Urine WBC (Auto) 1-5 (0-5) /hpf Urine RBC (Auto) 0-4 (0-4) /hpf U Hyaline Cast (Auto) 10-30 H (0-5) /lpf U Epithel Cells (Auto) >30 H (0-5) /lpf Urine Bacteria (Auto) 1+ H (Negative) Ur Renal Epithelial Cell Not Reportable Urine Mucus Present A (None Prsent) Salicylates (2.8-20) mg/dl Urine Opiates Screen Neg (Neg) Ur Methadone, Qual Neg (Neg) Acetaminophen (10-30) ug/ml Urine Barbiturates Neg (Neg) Ur Phencyclidine (PCP) Neg (Neg) U Amphetamin/Meth Scrn Neg (Neg) MDMA (Ecstasy) Screen Neg (Neg) U Benzodiazepines Scrn Neg (Neg) Ur Cocaine Metabolite Neg (Neg) U Marijuana (THC) Screen Neg (Neg) 07/09/19 07/09/19 07/09/19 Range/Units 20:07 20:48 20:48 WBC RBC Hgb Hct MCV MCH MCHC RDW Std Deviation RDW Coeff of Shukri Plt Count MPV Immature Gran % (Auto) Neut % (Auto) Lymph % (Auto) [place] % (Auto) Eos % (Auto) Baso % (Auto) Immature Gran # (Auto) Neut # (Auto) Lymph # (Auto) [place] # (Auto) Eos # (Auto) Baso # (Auto) Absolute Nucleated RBC Nucleated RBC % (auto) Neutrophils % (Manual) Band Neutrophils % Lymphocytes % (Manual) Prolymphocyte % Reactive Lymphs % (Man) Monocytes % (Manual) Eosinophils % (Manual) Basophils % (Manual) Metamyelocytes % (Man) Myelocytes % (Man) Promyelocytes % (Man) Blast Cells % (Manual) Plasma Cell % (Manual) Other Cells % Nucleated RBC % Neutrophils # (Manual) Band Neutrophils # Total Absolute Neuts Lymphocytes # (Manual) Prolymphocyte # Reactive Lymphs # Total Abs Lymphocytes Monocytes # (Manual) Eosinophils # (Manual) Basophils # (Manual) Metamyelocytes # (Man) Myelocytes # (Manual) Promyelocytes # (Man) Blast Cells # (Man) Plasma Cell # (Manual) Other Cells # Nucleated RBCs # (Man) Hypersegmented Neuts Hyposegmented Neuts Hypogranular Neuts Large Granular Lymphs # Lrg Granular Lymphs Hairy Cells Smudge Cells Toxic Granulation Toxic Vacuolation Dohle Bodies Mary Ellen Rods Platelet Estimate Hypogranular Platelets Clumped Platelets Giant Platelets Platelet Satelliting RBC Morphology Polychromasia Hypochromasia Poikilocytosis Basophilic Stippling Anisocytosis Microcytosis Macrocytosis Spherocytes Pappenheimer Bodies Sickle Cells Target Cells Tear Drop Cells Ovalocytes Stomatocytes [place] Bodies Echinocytes Acanthocytes (Spur) Rouleaux RBC Agglutinates Schistocytes RBC Morph Comment Sezary Cell PT 11.3 (9.0-12.0) Seconds INR 1.1 (0.9-1.1) Sodium Cancelled Potassium Cancelled Chloride Cancelled Carbon Dioxide Cancelled Anion Gap Cancelled BUN Cancelled Creatinine Cancelled Est Cr Clr Drug Dosing Cancelled Est GFR ( Amer) Cancelled Est GFR (Non-Af Amer) Cancelled BUN/Creatinine Ratio Cancelled Glucose Cancelled Calcium Cancelled Phosphorus (2.5-4.9) mg/dl Magnesium Cancelled Total Bilirubin Cancelled AST Cancelled ALT Cancelled Alkaline Phosphatase Cancelled Total Creatine Kinase Cancelled Troponin I Cancelled Total Protein Cancelled Albumin Cancelled Globulin Cancelled Albumin/Globulin Ratio Cancelled Lipase (73-393) U/L TSH Cancelled Urine Color Urine Appearance (Clear) Urine pH (4.5-7.5) Ur Specific Bee (1.000-1.030) Urine Protein (Negative) Urine Glucose (UA) (Negative) Urine Ketones (Negative) Urine Blood (Negative) Urine Nitrite (Negative) Urine Bilirubin (Negative) Urine Urobilinogen (Negative) Ur Leukocyte Esterase (Negative) Urine WBC (Auto) (0-5) /hpf Urine RBC (Auto) (0-4) /hpf U Hyaline Cast (Auto) (0-5) /lpf U Epithel Cells (Auto) (0-5) /lpf Urine Bacteria (Auto) (Negative) Ur Renal Epithelial Cell Urine Mucus (None Prsent) Salicylates < 1.7 L (2.8-20) mg/dl Urine Opiates Screen (Neg) Ur Methadone, Qual (Neg) Acetaminophen < 2 L (10-30) ug/ml Urine Barbiturates (Neg) Ur Phencyclidine (PCP) (Neg) U Amphetamin/Meth Scrn (Neg) MDMA (Ecstasy) Screen (Neg) U Benzodiazepines Scrn (Neg) Ur Cocaine Metabolite (Neg) U Marijuana (THC) Screen (Neg) 07/09/19 07/09/19 Range/Units 20:48 20:48 WBC 12.04 H RBC 4.33 L Hgb 13.5 L Hct 39.3 L MCV 90.8 MCH 31.2 MCHC 34.4 RDW Std Deviation 44.7 RDW Coeff of Shukri 13.4 Plt Count 238 MPV 9.4 Immature Gran % (Auto) 0.2 Neut % (Auto) 70.2 Lymph % (Auto) 23.7 [place] % (Auto) 5.6 Eos % (Auto) 0.2 Baso % (Auto) 0.1 Immature Gran # (Auto) 0.02 Neut # (Auto) 8.46 H Lymph # (Auto) 2.85 [place] # (Auto) 0.67 H Eos # (Auto) 0.03 Baso # (Auto) 0.01 Absolute Nucleated RBC Nucleated RBC % (auto) Neutrophils % (Manual) Band Neutrophils % Lymphocytes % (Manual) Prolymphocyte % Reactive Lymphs % (Man) Monocytes % (Manual) Eosinophils % (Manual) Basophils % (Manual) Metamyelocytes % (Man) Myelocytes % (Man) Promyelocytes % (Man) Blast Cells % (Manual) Plasma Cell % (Manual) Other Cells % Nucleated RBC % Neutrophils # (Manual) Band Neutrophils # Total Absolute Neuts Lymphocytes # (Manual) Prolymphocyte # Reactive Lymphs # Total Abs Lymphocytes Monocytes # (Manual) Eosinophils # (Manual) Basophils # (Manual) Metamyelocytes # (Man) Myelocytes # (Manual) Promyelocytes # (Man) Blast Cells # (Man) Plasma Cell # (Manual) Other Cells # Nucleated RBCs # (Man) Hypersegmented Neuts Hyposegmented Neuts Hypogranular Neuts Large Granular Lymphs # Lrg Granular Lymphs Hairy Cells Smudge Cells Toxic Granulation Toxic Vacuolation Dohle Bodies Mary Ellen Rods Platelet Estimate Hypogranular Platelets Clumped Platelets Giant Platelets Platelet Satelliting RBC Morphology Polychromasia Hypochromasia Poikilocytosis Basophilic Stippling Anisocytosis Microcytosis Macrocytosis Spherocytes Pappenheimer Bodies Sickle Cells Target Cells Tear Drop Cells Ovalocytes Stomatocytes [place] Bodies Echinocytes Acanthocytes (Spur) Rouleaux RBC Agglutinates Schistocytes RBC Morph Comment Sezary Cell PT (9.0-12.0) Seconds INR (0.9-1.1) Sodium 136 Potassium Chloride 99 Carbon Dioxide 32 Anion Gap 5.0 BUN 32 H Creatinine 1.25 Est Cr Clr Drug Dosing Not Reportable Est GFR ( Amer) 69.6 Est GFR (Non-Af Amer) 60.0 BUN/Creatinine Ratio 25.6 H Glucose 110 H Calcium 9.3 Phosphorus 3.6 (2.5-4.9) mg/dl Magnesium Total Bilirubin 1.0 AST ALT 48 Alkaline Phosphatase 112 Total Creatine Kinase Troponin I < 0.015 Total Protein 7.9 Albumin 3.8 Globulin 4.1 H Albumin/Globulin Ratio 0.9 Lipase 67 L (73-393) U/L TSH Urine Color Urine Appearance (Clear) Urine pH (4.5-7.5) Ur Specific Bee (1.000-1.030) Urine Protein (Negative) Urine Glucose (UA) (Negative) Urine Ketones (Negative) Urine Blood (Negative) Urine Nitrite (Negative) Urine Bilirubin (Negative) Urine Urobilinogen (Negative) Ur Leukocyte Esterase (Negative) Urine WBC (Auto) (0-5) /hpf Urine RBC (Auto) (0-4) /hpf U Hyaline Cast (Auto) (0-5) /lpf U Epithel Cells (Auto) (0-5) /lpf Urine Bacteria (Auto) (Negative) Ur Renal Epithelial Cell Urine Mucus (None Prsent) Salicylates (2.8-20) mg/dl Urine Opiates Screen (Neg) Ur Methadone, Qual (Neg) Acetaminophen (10-30) ug/ml Urine Barbiturates (Neg) Ur Phencyclidine (PCP) (Neg) U Amphetamin/Meth Scrn (Neg) MDMA (Ecstasy) Screen (Neg) U Benzodiazepines Scrn (Neg) Ur Cocaine Metabolite (Neg) U Marijuana (THC) Screen (Neg) Administered Medications Discontinued Medications Sodium Chloride (Nss 1000ml) 1,000 mls @ 999 mls/hr IV .Q1H1M RYAN Stop: 07/09/19 19:15 Last Infusion: 07/09/19 19:45 Dose: 0 mls/hr Documented by: [id number] Admin: 07/09/19 18:44 Dose: 999 mls/hr Documented by: [id number] Sodium Chloride (Nss 1000ml) 1,000 mls @ 999 mls/hr IV .Q1H1M ONE Stop: 07/09/19 21:49 Last Infusion: 07/09/19 21:46 Dose: 0 mls/hr Documented by: [id number] Admin: 07/09/19 20:45 Dose: 999 mls/hr Documented by: [id number] Discharge Plan Visit Data Chief Complaint: Confusion Stated Complaint: CONFUSION, AMS ED Provider: Huy German Discharge Problem: Altered mental status, HTN (hypertension), Atrial tachycardia, Leukocytosis, Hyperglycemia Forms Stand Alone Forms: [facility] Prescriptions Prescriptions: No Action aripiprazole 15 mg Tablet 15 mg PO BID RF: 0 diphenhydramine HCl 50 mg Capsule 100 mg PO HS RF: 0 amlodipine 5 mg Tablet 5 mg PO DAILY RF: 0 aspirin [Aspirin Low Dose] 81 mg Tablet,Delayed Release (Dr/Ec) 81 mg PO DAILY RF: 0 atorvastatin 40 mg Tablet 40 mg PO HS RF: 0 glimepiride 1 mg Tablet 1 mg PO QAM RF: 0 hydrochlorothiazide 25 mg Tablet 25 mg PO DAILY RF: 0 irbesartan 150 mg Tablet 150 mg PO DAILY RF: 0 Discharge Problem: Altered mental status Qualifiers: Altered mental status type: unspecified Qualified Code(s): R41.82 - Altered mental status, unspecified HTN (hypertension) Qualifiers: Hypertension type: unspecified Qualified Code(s): I10 - Essential (primary) hypertension Leukocytosis Qualifiers: Leukocytosis type: unspecified Qualified Code(s): D72.829 - Elevated white blood cell count, unspecified
[2019-07-09] MEDS ORDERED: SODIUM CHLORIDE 0.9% 1000ML 1,000 ML IV SCH (18:15)
--- NOTE | 2019-07-09 18:44 | XRay Report ---
XR chest 1V portable CLINICAL HISTORY: weakness COMPARISON STUDY: 02/26/2017 FINDINGS: The cardiac and mediastinal contours are normal. There is no evidence of focal pulmonary co nsolidation. There is no evidence of failure. No pleural effusions are visualized.[A wire-like opacit y projected over the upper chest is likely extraneous to the patient. IMPRESSION: No active disease in the chest. ACT 112: Negative or not required by law. Electronically signed by: Shahid Grant M.D. 07/09/2019 6:43 PM
[2019-07-09 19:01] LABS: Appearance Urine Cloudy (Clear); Bilirubin Urine Negative (Negative); Blood Urine Trace (Negative); Color Urine Dark Yellow; Epithelial Cell Urine Auto >30 /lpf (0-5); Glucose Urine UA Trace (Negative); Ketones Urine Trace (Negative); Leukocyte Esterase Urine Negative (Negative); Nitrite Urine Negative (Negative); Protein Urine 1+ (Negative); RBC Urine Automated 0-4 /hpf (0-4); Specific Gravity Urine 1.025 (1.000-1.030); Urobilinogen Urine Negative (Negative)
[2019-07-09 19:09] LABS: Mucus Urine Present (None Prsent)
[2019-07-09 19:10] LABS: Bacteria Urine Automated 1+ (Negative)
[2019-07-09 19:39] LABS: Amphetamines+Metham, Urine Neg (Neg); Barbiturates, Urine Neg (Neg); Benzodiazepine, Urine Neg (Neg); Cocaine, Urine Neg (Neg); MDMA (Ecstacy), Urine Neg (Neg); Methadone, Urine Neg (Neg); Opiate, Urine Neg (Neg); Phencyclidine, Urine Neg (Neg)
--- NOTE | 2019-07-09 19:48 | CT Scan Report ---
CT head/brain wo con CLINICAL HISTORY: Acute change in mental status. COMPARISON STUDY: CT MRI the brain performed February 2017 TECHNIQUE: Axial CT of the brain is performed from the vertex to the skull base. IV contrast was not administered for this examination. A dose lowering technique was utilized adhering to the principles of ALARA. CT DOSE: 614.27 mGy.cm FINDINGS: No intra or extra-axial mass lesions are visualized. There is no CT evidence of acute cortical infarc tion. There is no evidence of midline shift. There is no acute hemorrhage. No calvarial fractures ar e visualized. There are minimal white matter hypodensities likely on a small vessel basis. There is no evidence of pathologic ventricular dilatation. There is no evidence of acute sinusitis IMPRESSION: No acute intracranial findings ACT 112: Negative or not required by law. Electronically signed by: Shahid Grant M.D. 07/09/2019 7:47 PM
[2019-07-09] MEDS ORDERED: SODIUM CHLORIDE 0.9% 1000ML 1,000 ML IV ONE (20:49)
[2019-07-09 21:02] LABS: Basophils # (auto) 0.01 K/uL (0-0.2); Basophils % (auto) 0.1 %; Eosinophils # (auto) 0.03 K/uL (0-0.5); Eosinophils % (auto) 0.2 %; Hematocrit (blood only) 39.3 % (42-52); Hemoglobin 13.5 g/dL (14.0-18.0); Immature Granulocytes # (auto) 0.02 K/uL (0.00-0.02); Immature Granulocytes % (auto) 0.2 %; Lymphocytes # (auto) 2.85 K/uL (1.2-3.4); Lymphocytes % (auto) 23.7 %; Mean Corpuscular Hemoglobin 31.2 pg (25-34); Mean Corpuscular Hgb Conc 34.4 g/dL (32-36); Mean Corpuscular Volume 90.8 fL (80-100); Mean Platelet Volume 9.4 fL (7.4-10.4); Monocytes # (auto) 0.67 K/uL (0.11-0.59); Monocytes % (auto) 5.6 %; Neutrophils # (auto) 8.46 K/uL (1.4-6.5); Neutrophils % (auto) 70.2 %; Platelet Count 238 K/uL (130-400); RDW Coefficient of Variation 13.4 % (11.5-14.5); RDW Standard Deviation 44.7 fL (36.4-46.3); Red Blood Count 4.33 M/uL (4.7-6.1); White Blood Count 12.04 K/uL (4.8-10.8)
[2019-07-09 21:10] LABS: INR 1.1 (0.9-1.1); Prothrombin Time 11.3 Seconds (9.0-12.0)
[2019-07-09 21:20] LABS: Acetaminophen < 2 ug/ml (10-30); Salicylate < 1.7 mg/dl (2.8-20)
[2019-07-09 21:21] LABS: Alanine Aminotransferase 48 U/L (12-78); Albumin Level 3.8 gm/dl (3.4-5.0); BUN Creatinine Ratio 25.6 (10-20); Blood Urea Nitrogen 32 mg/dl (7-18); Calcium 9.3 mg/dl (8.5-10.1); Carbon Dioxide 32 mmol/L (21-32); Chloride 99 mmol/L (98-107); Est GFR (African American) 69.6; Glucose 110 mg/dl (70-99); Lipase 67 U/L (73-393); Sodium 136 mmol/L (136-145)
[2019-07-09 21:24] LABS: Albumin Globulin Ratio 0.9 (0.9-2); Alkaline Phosphatase 112 U/L (45-117); Globulin 4.1 gm/dl (2.5-4.0); Phosphorus 3.6 mg/dl (2.5-4.9); Total Protein 7.9 gm/dl (6.4-8.2); Troponin I < 0.015 ng/ml (0-0.045)
[2019-07-09] MEDS ORDERED: METOPROLOL TARTRATE 1 MG/ML VIAL IV STA (22:07)
[2019-07-09] MEDS ORDERED: NITROGLYCERIN SL 0.4 MG/TAB TAB SL PRN (23:54)
[2019-07-09] MEDS ORDERED: POLYETHYLENE (MIRALAX) 17 GM PACK PO PRN (23:54)
[2019-07-09] MEDS ORDERED: ACETAMINOPHEN 325 MG TAB PO PRN (23:54)
[2019-07-09] MEDS ORDERED: METOPROLOL TARTRATE 1 MG/ML VIAL IV PRN (23:54)
[2019-07-09] MEDS ORDERED: ONDANSETRON INJ 2 MG/ML 2 ML VIAL IV PRN (23:54)
--- NOTE | 2019-07-09 23:58 | History and Physical Report ---
DATE OF ADMISSION: 07/09/2019 CHIEF COMPLAINT: Confusion. HISTORY OF PRESENT ILLNESS: This is a 64-year-old male with past medical history significant for anxiety, delusional disorder, history of possible psychosis and malingering, delirium, hyperlipidemia, diabetes, hypertension, comes from senior care because of ongoing confusion for the last 3 days. He was treated in the [facility]. There was still on and off confusion, so he was brought in here. The patient says his anxiety is acting up. He has some schizophrenia. As per the guards, the patient is getting on and off unresponsive episode, currently he is alert and awake and oriented. Speech is clear. Denies any other complaints. Denies any headache, no dizziness, no blurred vision, no earache, no runny nose, no sore throat, no cough, no difficulty swallowing. Appetite is okay. No chest pain, no shortness of breath, no nausea, no abdominal pain. Normal bowel and bladder movements. Ambulates okay. No fevers. CT of the head is unremarkable in the ER. UA, there is some bacteria, but otherwise unremarkable. Resting comfortably and hemodynamically stable. ALLERGIES: No known drug allergies. PAST MEDICAL HISTORY: As mentioned above. FAMILY HISTORY: Unknown. SOCIAL HISTORY: Currently in senior care. MEDICATIONS: The patient is on amlodipine 5 mg p.o. daily, aripiprazole 15 mg p.o. b.i.d., aspirin 81 mg p.o. daily, atorvastatin 40 mg p.o. at bedtime, diphenhydramine 100 mg p.o. at bedtime, glimepiride 1 mg p.o. a.m., hydrochlorothiazide 25 mg p.o. daily, irbesartan 150 mg p.o. daily. REVIEW OF SYMPTOMS: As per HPI. Rest of review of systems are negative. PHYSICAL EXAMINATION: GENERAL: The patient is of moderate build, not in acute distress. VITAL SIGNS: Temperature 36.8, pulse 93, respiratory rate 16, blood pressure 153/87, oxygen 98% on room air. HEENT: No pallor, no icterus. Head is atraumatic. Pupils are equal, round, reactive to light. Extraocular muscles intact. No facial droop. NECK: Supple. CARDIOVASCULAR: S1, S2 heard, regular rate and rhythm, no murmur, no gallop. RESPIRATORY SYSTEM: Normal AP diameter. No accessory muscle use. No wheezing, no crackles. ABDOMEN: Soft, bowel sounds present, nontender. No distention. CENTRAL NERVOUS SYSTEM: Cranial nerves II-XII grossly intact. Alert and awake and oriented x3. Speech is clear. Power 5/5 in all extremities. No pronator drift. Normal coordination of movements. Sensation is intact. EXTREMITIES: No edema, no erythema. LABORATORY DATA: WBC 12, hemoglobin 13.5, hematocrit 39.3, platelets 238. PT 11.3, INR 1.1. Sodium 136, chloride 99, bicarbonate 32, BUN 32, creatinine 1.25, serum glucose 110, calcium 9.3, phosphorus 3.6, total bilirubin 1, ALT 48, alkaline phosphatase 112. Troponin I less than 0.015. Lipase 67. Urinalysis, cloudy, +1 bacteria. Drug screen, salicylate less than 1.7, acetaminophen less than 2, otherwise negative. IMAGING: Chest x-ray: No active disease in the chest. CT of the head, no acute findings. EKG: Sinus tachycardia with rate of 101, nonspecific T-wave abnormalities. ASSESSMENT AND PLAN: This is a 64-year-old male who presents with confusion. 1. Confusion: The patient is confused on and off for the last 3 days. He attributes it to anxiety and schizophrenia. He was in the [facility] in the senior care. CT head is unremarkable. Currently, seems to be stable. As per the guards, he is getting confused on and off. We will admit to med/surg, tele. Get EEG. Continue his home medications of aripiprazole and consult psychiatry in a.m. for further recommendations. Closely monitor. 2. History of hypertension: Continue his amlodipine, irbesartan and hydrochlorothiazide. iv Lopressor prn. Monitor blood pressure. 3. Diabetes: Hold his glipizide.Place on sliding scale. Follow hemoglobin A1c level. 4. Hyperlipidemia: Continue statin. 5. Deep vein thrombosis prophylaxis, sequential compression devices. 6. Disposition: Closely monitor in the med/tele. Level 1 full code. MTDD
[2019-07-10] MEDS ORDERED: CARBOHYDRATES FOR HYPOGLYCEMIA PO PRN (00:15)
[2019-07-10] MEDS ORDERED: GLUCOSE 10 TABS/TUBE PO PRN (00:15)
[2019-07-10] MEDS ORDERED: GLUCAGON FOR INJ 1 MG VIAL SQ PRN (00:15)
[2019-07-10] MEDS ORDERED: GLUCOSE 40% GEL 15 GM TUBE PO PRN (00:15)
[2019-07-10] MEDS ORDERED: DEXTROSE 50% 50 ML SYRINGE IV PRN (00:15)
[2019-07-10] MEDS: SODIUM CHLORIDE 0.9% 1000ML 1,000 ML IV SCH ×2 (00:47→11:35)
[2019-07-10] MEDS: cefTRIAXone SODIUM 2,000 MG in DEXTROSE 5% 50 ML IV SCH (00:49)
[2019-07-10 06:19] LABS: BUN Creatinine Ratio 23.5 (10-20); Calcium 8.9 mg/dl (8.5-10.1); Creatinine Clr Calc Pharmacy 87.1 ml/min; Est GFR (African American) 86.9; Magnesium 2.5 mg/dl (1.8-2.4); Potassium 3.2 mmol/L (3.5-5.1)
[2019-07-10 06:28] LABS: Hematocrit (blood only) 39.6 % (42-52); Hemoglobin 13.4 g/dL (14.0-18.0); Mean Corpuscular Hemoglobin 31.4 pg (25-34); Mean Corpuscular Hgb Conc 33.8 g/dL (32-36); Mean Corpuscular Volume 92.7 fL (80-100); RDW Coefficient of Variation 13.6 % (11.5-14.5); Red Blood Count 4.27 M/uL (4.7-6.1); White Blood Count 10.22 K/uL (4.8-10.8)
[2019-07-10 06:29] LABS: Basophils # (auto) 0.02 K/uL (0-0.2); Basophils % (auto) 0.2 %; Eosinophils # (auto) 0.06 K/uL (0-0.5); Eosinophils % (auto) 0.6 %; Immature Granulocytes # (auto) 0.06 K/uL (0.00-0.02); Immature Granulocytes % (auto) 0.6 %; Lymphocytes # (auto) 1.95 K/uL (1.2-3.4); Lymphocytes % (auto) 19.1 %; Monocytes # (auto) 0.64 K/uL (0.11-0.59); Monocytes % (auto) 6.3 %; Neutrophils # (auto) 7.49 K/uL (1.4-6.5); Neutrophils % (auto) 73.2 %
[2019-07-10 06:44] LABS: Estimated Average Glucose 166 mg/dl; Hemoglobin A1C 7.4 % (4.5-5.6)
[2019-07-10] MEDS ORDERED: POTASSIUM CHLORIDE 20 MEQ TABCR PO STA (08:59)
[2019-07-10] MEDS ORDERED: cefTRIAXone SODIUM 1,000 MG in DEXTROSE 5% 50 ML IV SCH (09:00)
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
[2019-07-10] MEDS: INSULIN ASPART 100 UNITS/ML 3 ML PEN SC SCH ×2 (09:01→12:45)
[2019-07-10] MEDS: hydroCHLOROthiazide 25 MG TAB PO SCH (09:25)
[2019-07-10] MEDS: ARIPiprazole 15 MG TAB PO SCH ×2 (09:26→20:24)
[2019-07-10] MEDS: ASPIRIN 81 MG ECTAB PO SCH (09:26)
[2019-07-10] MEDS: AMLODIPINE BESYLATE 5 MG TAB PO SCH (09:26)
[2019-07-10] MEDS: IRBESARTAN 150 MG TAB PO SCH (09:27)
--- NOTE | 2019-07-10 09:38 | CT Scan Report ---
CT abd pelvis wo con CLINICAL HISTORY: 64 years-old Male presenting with right flank pain. TECHNIQUE: Multidetector CT of the abdomen and pelvis was performed without the use of intravenous co ntrast. IV contrast: None. One or more dose lowering techniques were used consistent with the princip les of ALARA (as low as reasonably achievable), including automatic exposure control, mA or kV adjust ment to individual patient size, and/or use of iterative reconstruction. COMPARISON: None. CT DOSE (mGy.cm): The estimated cumulative dose is 544.81 mGy.cm. FINDINGS: General Duty Nurse topogram: Unremarkable. Lung bases: Normal heart size. No pericardial or pleural effusion. No focal infiltrate or nodule at t he lung bases. Liver: Normal morphology. Normal density. Biliary: No gross biliary ductal dilatation allowing for noncontrast technique. Normal gallbladder. Pancreas: Normal noncontrast appearance. Spleen: Normal noncontrast appearance. Adrenal glands: Normal noncontrast appearance. Kidneys and ureters: Few cysts may be present bilaterally. No hydronephrosis or nephrolithiasis. Uret ers nondistended. Bladder: Normal noncontrast appearance. Pelvic organs: Normal noncontrast appearance. Bowel: Mild to moderate stool burden throughout normal caliber colon. The appendix is contained withi n a right inguinal hernia and is otherwise normal-appearing (Amyand hernia). No bowel obstruction. Peritoneal cavity: No free fluid or intraperitoneal gas. Lymph nodes: No gross lymphadenopathy allowing for noncontrast technique. Vasculature: Atherosclerosis of the normal caliber abdominal aorta. Abdominal wall: Normal. Musculoskeletal: Heterotopic ossification in the region of the right hamstring muscle complex proxima l fibers. Minimal degenerative changes of the spine. IMPRESSION: 1. Allowing for noncontrast technique, no acute intra-abdominal pathology. ACT 112: Negative or not required by law. Electronically signed by: Cecil Lemus M.D. 07/10/2019 9:37 AM
--- NOTE | 2019-07-10 11:25 | Electroencephalogram ---
EEG Procedure Note Date of Service July 10, 2019 Start / End Times Start Time: 08:13 End Time: 08:[address] Chavez History A 64 year old male admitted withe encephalopathy. EEG performed for evaluation of epilpetiform activity. Home Medication List Home Medications Medication Instructions Recorded Confirmed Type amlodipine 5 mg PO DAILY 07/09/19 07/09/19 History aripiprazole 15 mg PO BID 07/09/19 07/09/19 History aspirin [Aspirin Low Dose] 81 mg PO DAILY 07/09/19 07/09/19 History atorvastatin 40 mg PO HS 07/09/19 07/09/19 History diphenhydramine HCl 100 mg PO HS 07/09/19 07/09/19 History glimepiride 1 mg PO QA 07/09/19 07/09/19 History hydrochlorothiazide 25 mg PO DAILY 07/09/19 07/09/19 History irbesartan 150 mg PO DAILY 07/09/19 07/09/19 History Inpatient Medication List Amlodipine Besylate (Norvasc) 5 mg PO DAILY RYAN Stop: 08/09/19 08:59 Last Admin: 07/10/19 09:26 Dose: 5 mg Documented by: [id number] Aripiprazole (Abilify) 15 mg PO BID RYAN Stop: 08/09/19 08:59 Last Admin: 07/10/19 09:26 Dose: 15 mg Documented by: [id number] Aspirin (Ecotrin Ectab) 81 mg PO DAILY RYAN Stop: 08/09/19 08:59 Last Admin: 07/10/19 09:26 Dose: 81 mg Documented by: [id number] Hydrochlorothiazide (Hctz) 25 mg PO DAILY RYAN Stop: 08/09/19 08:59 Last Admin: 07/10/19 09:25 Dose: 25 mg Documented by: [id number] Sodium Chloride (Nss 1000ml) 1,000 mls @ 100 mls/hr IV .Q10H RYAN Stop: 07/10/19 16:00 Last Infusion: 07/10/19 01:20 Dose: 100 mls/hr Documented by: [id number] Infusion: 07/10/19 00:52 Dose: 0 mls/hr Documented by: [id number] Admin: 07/10/19 00:47 Dose: 100 mls/hr Documented by: [id number] Ceftriaxone Sodium 2,000 mg/ (Dextrose) 70 mls @ 140 mls/hr IV Q24H RYAN Stop: 07/20/19 00:00 Last Infusion: 07/10/19 01:20 Dose: 0 mls/hr Documented by: [id number] Admin: 07/10/19 00:49 Dose: 140 mls/hr Documented by: [id number] Insulin Aspart (Novolog Flexpen) 0 units SC ACHS RYAN Stop: 08/09/19 07:29 Last Admin: 07/10/19 09:01 Dose: Not Given Documented by: [id number] Cosigned by: [id number] Irbesartan (Avapro) 150 mg PO DAILY RYAN Stop: 08/09/19 08:59 Last Admin: 07/10/19 09:27 Dose: 150 mg Documented by: [id number] Discontinued Medications Sodium Chloride (Nss 1000ml) 1,000 mls @ 999 mls/hr IV .Q1H1M RYAN Stop: 07/09/19 19:15 Last Infusion: 07/09/19 19:45 Dose: 0 mls/hr Documented by: [id number] Admin: 07/09/19 18:44 Dose: 999 mls/hr Documented by: [id number] Sodium Chloride (Nss 1000ml) 1,000 mls @ 999 mls/hr IV .Q1H1M ONE Stop: 07/09/19 21:49 Last Infusion: 07/09/19 21:46 Dose: 0 mls/hr Documented by: [id number] Admin: 07/09/19 20:45 Dose: 999 mls/hr Documented by: [id number] Metoprolol Tartrate (Lopressor) 2.5 mg IV NOW STA Stop: 07/09/19 22:08 Last Admin: 07/09/19 22:22 Dose: 2.5 mg Documented by: [id number] Potassium Chloride (Klor-Con M20) 40 meq PO NOW STA Stop: 07/10/19 09:00 Last Admin: 07/10/19 09:36 Dose: 40 meq Documented by: [id number] Description This is a 21 electrode EEG with a single channel dedicated to limited EKG. The electrodes were placed in accordance with the International 10-20 system. REPORT: At the onset of the EEG the patient is awake. The posterior dominant rhythm is 7-8 Hz. There is a normal anterior to posterior gradient. The background is symmetric. Photic stimulation does not illicit any abnormalities. No stage II sleep transient are seen. IMPRESSION: This is an abnormal awake and drowsy EEG due to mild background slowing suggestive of a mild non specific encephalopathy. No focal slowing or epileptiform activity is recorded.
[2019-07-10] MEDS: GLIMEPIRIDE 2 MG TAB PO SCH (13:59)
--- NOTE | 2019-07-10 14:30 | Hospitalist Progress Note ---
Date of Service July 10, 2019 Assessment & Plan (1) Acute confusion: Admitted from the intermediate with acute confusion/psychosis Admits to have anxiety/depression and possible schizophrenia but not documented in the chart correctly Clinically no acute symptoms this morning Appreciate psychiatric input and recommendation Will have outpatient psychiatric evaluation as he is getting before (2) Recurrent episodes of unresponsiveness: Admits to have recurrent unresponsiveness Happens about 2 times a week No documentation of self injury and no documentation of hypoglycemia He believes it is due to hypoglycemia EEG has been negative for any seizure disorder We will continue his outpatient medication regimen and check blood sugar AC at bedtime Stop insulin (3) Diabetes type 2, controlled: As above (4) HTN (hypertension): Continue current medication (5) Possible urinary tract infection: UA was suggestive of infection Awaiting urine culture and sensitivity Has been getting ceftriaxone No other infective source at this time DVT prophylax Subcu heparin CODE STATUS Full Admission and Anticipated Discharge Date Admission Date: July 09, 2019 Subjective The patient was seen and examined in medical telemetry unit He was admitted with the episodic loss of consciousness and confusion He has significant psychiatric illness and diabetes Feels fine as of this morning and denies any symptoms Review of Systems Review of Systems: All systems reviewed and are unremarkable except as noted below Psychiatric: + depression; no behavioral changes, no suicidal ideation and no homicidal ideation Physical Exam Physical Exam: Lying in bed comfortably Constitutional: well developed and well nourished; no acute distress and not ill appearing Eyes: PERRL, conjunctivae normal, anicteric sclerae ENMT: external ear and nose normal, oropharynx normal Neck: trachea midline, no thyromegaly Respiratory: normal respiratory effort; no respiratory distress Auscultation: lungs clear to auscultation bilaterally Cardiovascular: Rate/Rhythm: regular rate and regular rhythm Heart Sounds: no murmur Extremities: + edema (Bilateral 1+ edema) Gastrointestinal (Abdomen): Inspection/Auscultation: abdomen normal to inspection and normal bowel sounds Percussion/Palpation: abdomen soft; abdomen nontender Musculoskeletal: No acute arthritis involving any joint Neurologic: moves all extremities; no focal motor deficits Results & Data Results & Data ([facility]) Vital Signs (Past 12 Hours) Vital Signs Temp Pulse Pulse Resp BP Pulse Ox 07/10/19 11:28 36.8 C 102 H 18 145/80 H 98 07/10/19 07:19 36.7 C 73 18 156/83 H 93 05/14/20 07:00 89 07/10/19 03:19 36.9 C 106 H 18 182/88 H 98 Laboratory Results Short CBC 07/09/19 07/09/19 07/10/19 Range/Units 20:07 20:48 05:23 WBC Cancelled 12.04 H 10.22 Hgb Cancelled 13.5 L 13.4 L Hct Cancelled 39.3 L 39.6 L Plt Count Cancelled 238 BMP 07/09/19 07/09/19 07/09/19 20:07 20:48 23:03 Sodium Cancelled 136 Potassium Cancelled 3.0 L Chloride Cancelled 99 Carbon Dioxide Cancelled 32 BUN Cancelled 32 H Creatinine Cancelled 1.25 Glucose Cancelled 110 H Calcium Cancelled 9.3 07/10/19 05:23 Sodium 137 Potassium 3.2 L Chloride 102 Carbon Dioxide 29 BUN 24 H Creatinine 1.04 Glucose 118 H Calcium 8.9 Cardiac Enzymes 07/09/19 07/09/19 Range/Units 20:07 20:48 Total Creatine Kinase Cancelled Troponin I Cancelled < 0.015 Liver Function 07/09/19 07/09/19 Range/Units 20:07 20:48 Total Bilirubin Cancelled 1.0 AST Cancelled ALT Cancelled 48 Alkaline Phosphatase Cancelled 112 Albumin Cancelled 3.8 Urine 07/09/19 Range/Units 18:45 Urine Color Dark Yellow Urine Appearance Cloudy A (Clear) Urine pH 5.0 (4.5-7.5) Ur Specific [place] 1.025 (1.000-1.030) Urine Protein 1+ H (Negative) Urine Glucose (UA) Trace H (Negative) Medications Administered Current Inpatient Medications Acetaminophen (Tylenol) 650 mg PO Q4H PRN PRN Reason: Pain or Fever Stop: 08/08/19 23:53 Amlodipine Besylate (Norvasc) 5 mg PO DAILY [facility] Stop: 08/09/19 08:59 Last Admin: 07/10/19 09:26 Dose: 5 mg Documented by: Aripiprazole (Abilify) 15 mg PO BID [facility] Stop: 08/09/19 08:59 Last Admin: 07/10/19 09:26 Dose: 15 mg Documented by: Aspirin (Ecotrin Ectab) 81 mg PO DAILY [facility] Stop: 08/09/19 08:59 Last Admin: 07/10/19 09:26 Dose: 81 mg Documented by: Atorvastatin Calcium (Lipitor) 40 mg PO HS [facility] Stop: 08/09/19 20:59 Dextrose (Dextrose 50%) 25 - 50 ml IV UD PRN; Protocol PRN Reason: Hypoglycemia Protocol Stop: 08/09/19 00:14 Diphenhydramine HCl (Benadryl Capsule) 100 mg PO HS [facility] Stop: 08/09/19 20:59 Glimepiride (Amaryl) 1 mg PO QAM [facility] Stop: 08/09/19 13:14 Last Admin: 07/10/19 13:59 Dose: 1 mg Documented by: Glucagon (Glucagen) 1 mg SQ UD PRN; Protocol PRN Reason: Hypoglycemia Protocol Stop: 08/09/19 00:14 Glucose (Glucose 40%) 15 - 30 gm PO UD PRN; Protocol PRN Reason: Hypoglycemia Protocol Stop: 08/09/19 00:14 Glucose (Dex4 Glucose) 4 - 8 tabs PO UD PRN; Protocol PRN Reason: Hypoglycemia Protocol Stop: 08/09/19 00:14 Hydrochlorothiazide (Hctz) 25 mg PO DAILY [facility] Stop: 08/09/19 08:59 Last Admin: 07/10/19 09:25 Dose: 25 mg Documented by: Sodium Chloride (Nss 1000ml) 1,000 mls @ 100 mls/hr IV .Q10H [facility] Stop: 07/10/19 16:00 Last Admin: 07/10/19 11:35 Dose: 100 mls/hr Documented by: Ceftriaxone Sodium 2,000 mg/ (Dextrose) 70 mls @ 140 mls/hr IV Q24H [facility] Stop: 07/20/19 00:00 Last Infusion: 07/10/19 01:20 Dose: Infused Documented by: Irbesartan (Avapro) 150 mg PO DAILY [facility] Stop: 08/09/19 08:59 Last Admin: 07/10/19 09:27 Dose: 150 mg Documented by: Metoprolol Tartrate (Lopressor) 2.5 mg IV Q6 PRN PRN Reason: Tachycardia Stop: 08/08/19 23:53 Miscellaneous (Carbohydrates For Hypoglycemia) 15 - 30 gm PO UD PRN PRN Reason: Hypoglycemia Treatment Stop: 08/09/19 00:14 Nitroglycerin (Nitrostat) 0.4 mg SL UD PRN PRN Reason: Chest Pain Stop: 08/08/19 23:53 Ondansetron HCl (Zofran) 4 mg IV Q6H PRN PRN Reason: Nausea Stop: 08/08/19 23:53 Polyethylene Glycol (Miralax Powder Packet) 17 gm PO DAILY PRN PRN Reason: Constipation Stop: 08/08/19 23:53 (1) HTN (hypertension) Hypertension type: unspecified Qualified Code(s): I10 - Essential (primary) hypertension
[2019-07-10] MEDS: ATORVASTATIN 40 MG TAB PO SCH (20:24)
--- NOTE | 2019-07-10 22:19 | Electrocardiogram Report ---
Test Reason : Blood Pressure : / mmHG Vent. Rate : 101 BPM Atrial Rate : 101 BPM P-R Int : 126 ms QRS Dur : 082 ms QT Int : 326 ms P-R-T Axes : 073 031 041 degrees QTc Int : 422 ms Sinus tachycardia Nonspecific T wave abnormality Abnormal ECG When compared with ECG of 26-FEB-2017 19:54, T wave amplitude has decreased in Anterior leads Confirmed by Eugene Briones [id number]) on 07/10/2019 10:18:47 PM Referred By: Saji ANDERSON Confirmed By:Eugene Briones
[2019-07-11] MEDS: cefTRIAXone SODIUM 2,000 MG in DEXTROSE 5% 50 ML IV SCH (00:30)
[2019-07-11] MEDS: AMLODIPINE BESYLATE 5 MG TAB PO SCH (08:02)
[2019-07-11] MEDS: GLIMEPIRIDE 2 MG TAB PO SCH (08:02)
[2019-07-11] MEDS: IRBESARTAN 150 MG TAB PO SCH (08:02)
[2019-07-11] MEDS: ASPIRIN 81 MG ECTAB PO SCH (08:02)
[2019-07-11] MEDS: hydroCHLOROthiazide 25 MG TAB PO SCH (08:02)
[2019-07-11] MEDS: ARIPiprazole 15 MG TAB PO SCH ×2 (08:02→21:04)
--- NOTE | 2019-07-11 13:34 | Hospitalist Progress Note ---
Date of Service July 11, 2019 Assessment & Plan (1) Acute confusion: Admitted from the senior care with acute confusion/psychosis Admits to have anxiety/depression and possible schizophrenia but not documented in the chart correctly Clinically no acute symptoms this morning Appreciate psychiatric input and recommendation Will have outpatient psychiatric evaluation as he is getting before No more acute confusion Medically stable to be discharged (2) Recurrent episodes of unresponsiveness: Admits to have recurrent unresponsiveness Happens about 2 times a week No documentation of self injury and no documentation of hypoglycemia He believes it is due to hypoglycemia EEG has been negative for any seizure disorder We will continue his outpatient medication regimen and check blood sugar AC at bedtime Stop insulin Has been on oral medications for diabetes No episodes of unresponsiveness as was described before Blood sugar remains stable We will continue checking blood sugar (3) Diabetes type 2, controlled: As above (4) HTN (hypertension): Continue current medication (5) Possible urinary tract infection: UA was suggestive of infection Awaiting urine culture and sensitivity Has been getting ceftriaxone Urine culture is pending Likely be discharged tomorrow DVT prophylax Subcu heparin CODE STATUS Full Admission and Anticipated Discharge Date Admission Date: July 09, 2019 Anticipated date of discharge: 07/12/19 Subjective The patient was seen and examined in medical telemetry unit He was admitted with the episodic loss of consciousness and confusion He has significant psychiatric illness and diabetes Feels fine as of this morning and denies any symptoms 07/11/2019 The patient was seen and examined in medical floor He does not have any complaints as of today No more episodes of unresponsiveness Still waiting for the urine culture to come back Review of Systems Review of Systems: All systems reviewed and are unremarkable except as noted below Psychiatric: + depression; no behavioral changes, no suicidal ideation and no homicidal ideation Physical Exam Physical Exam: Lying in bed comfortably Constitutional: well developed and well nourished; no acute distress and not ill appearing Eyes: PERRL, conjunctivae normal, anicteric sclerae ENMT: external ear and nose normal, oropharynx normal Neck: trachea midline, no thyromegaly Respiratory: normal respiratory effort; no respiratory distress Auscultation: lungs clear to auscultation bilaterally Cardiovascular: Rate/Rhythm: regular rate and regular rhythm Heart Sounds: no murmur Extremities: + edema (Bilateral 1+ edema) Gastrointestinal (Abdomen): Inspection/Auscultation: abdomen normal to inspection and normal bowel sounds Percussion/Palpation: abdomen soft; abdomen nontender Neurologic: moves all extremities; no focal motor deficits Psychiatric: Orientation: alert and oriented x 3 Lymphatic: no cervical or axillary lymphadenopathy Results & Data Results & Data ([facility]) Vital Signs (Past 12 Hours) Vital Signs Temp Pulse Pulse Resp BP BP Pulse Ox 07/11/19 11:59 36.5 C 103 H 18 176/67 H 95 07/11/19 08:28 93 H 07/11/19 08:04 36.6 C 88 18 169/90 H 98 07/11/19 03:55 36.8 C 85 18 166/72 H 98 Medications Administered Current Inpatient Medications Acetaminophen (Tylenol) 650 mg PO Q4H PRN PRN Reason: Pain or Fever Stop: 08/08/19 23:53 Amlodipine Besylate (Norvasc) 5 mg PO DAILY [facility] Stop: 08/09/19 08:59 Last Admin: 07/11/19 08:02 Dose: 5 mg Documented by: Aripiprazole (Abilify) 15 mg PO BID [facility] Stop: 08/09/19 08:59 Last Admin: 07/11/19 08:02 Dose: 15 mg Documented by: Aspirin (Ecotrin Ectab) 81 mg PO DAILY [facility] Stop: 08/09/19 08:59 Last Admin: 07/11/19 08:02 Dose: 81 mg Documented by: Atorvastatin Calcium (Lipitor) 40 mg PO HS [facility] Stop: 08/09/19 20:59 Last Admin: 07/10/19 20:24 Dose: 40 mg Documented by: Dextrose (Dextrose 50%) 25 - 50 ml IV UD PRN; Protocol PRN Reason: Hypoglycemia Protocol Stop: 08/09/19 00:14 Diphenhydramine HCl (Benadryl Capsule) 100 mg PO HS [facility] Stop: 08/09/19 20:59 Last Admin: 07/10/19 20:23 Dose: 100 mg Documented by: Glimepiride (Amaryl) 1 mg PO QAM [facility] Stop: 08/09/19 13:14 Last Admin: 07/11/19 08:02 Dose: 1 mg Documented by: Glucagon (Glucagen) 1 mg SQ UD PRN; Protocol PRN Reason: Hypoglycemia Protocol Stop: 08/09/19 00:14 Glucose (Glucose 40%) 15 - 30 gm PO UD PRN; Protocol PRN Reason: Hypoglycemia Protocol Stop: 08/09/19 00:14 Glucose (Dex4 Glucose) 4 - 8 tabs PO UD PRN; Protocol PRN Reason: Hypoglycemia Protocol Stop: 08/09/19 00:14 Hydrochlorothiazide (Hctz) 25 mg PO DAILY [facility] Stop: 08/09/19 08:59 Last Admin: 07/11/19 08:02 Dose: 25 mg Documented by: Ceftriaxone Sodium 2,000 mg/ (Dextrose) 70 mls @ 140 mls/hr IV Q24H [facility] Stop: 07/20/19 00:00 Last Infusion: 07/11/19 01:25 Dose: Infused Documented by: Irbesartan (Avapro) 150 mg PO DAILY [facility] Stop: 08/09/19 08:59 Last Admin: 07/11/19 08:02 Dose: 150 mg Documented by: Metoprolol Tartrate (Lopressor) 2.5 mg IV Q6 PRN PRN Reason: Tachycardia Stop: 08/08/19 23:53 Miscellaneous (Carbohydrates For Hypoglycemia) 15 - 30 gm PO UD PRN PRN Reason: Hypoglycemia Treatment Stop: 08/09/19 00:14 Nitroglycerin (Nitrostat) 0.4 mg SL UD PRN PRN Reason: Chest Pain Stop: 08/08/19 23:53 Ondansetron HCl (Zofran) 4 mg IV Q6H PRN PRN Reason: Nausea Stop: 08/08/19 23:53 Polyethylene Glycol (Miralax Powder Packet) 17 gm PO DAILY PRN PRN Reason: Constipation Stop: 08/08/19 23:53 (1) HTN (hypertension) Hypertension type: unspecified Qualified Code(s): I10 - Essential (primary) hypertension
[2019-07-11] MEDS: ATORVASTATIN 40 MG TAB PO SCH (21:03)
[2019-07-12] MEDS: cefTRIAXone SODIUM 2,000 MG in DEXTROSE 5% 50 ML IV SCH (00:04)
[2019-07-12] MEDS: GLIMEPIRIDE 2 MG TAB PO SCH (08:08)
[2019-07-12] MEDS: ARIPiprazole 15 MG TAB PO SCH (08:08)
[2019-07-12] MEDS: AMLODIPINE BESYLATE 5 MG TAB PO SCH (08:09)
[2019-07-12] MEDS: ASPIRIN 81 MG ECTAB PO SCH (08:09)
[2019-07-12] MEDS: hydroCHLOROthiazide 25 MG TAB PO SCH (08:09)
[2019-07-12] MEDS: IRBESARTAN 150 MG TAB PO SCH (08:09)
--- NOTE | 2019-07-12 12:31 | Hospitalist Progress Note ---
Date of Service July 12, 2019 Assessment & Plan (1) Acute confusion: Admitted from the skilled nursing with acute confusion/psychosis Admits to have anxiety/depression and possible schizophrenia but not documented in the chart correctly Clinically no acute symptoms this morning Appreciate psychiatric input and recommendation Will have outpatient psychiatric evaluation as he is getting before No more confusion which is completely resolved Was advised to have regular evaluation by his outpatient psychiatrist (2) Recurrent episodes of unresponsiveness: Admits to have recurrent unresponsiveness Happens about 2 times a week No documentation of self injury and no documentation of hypoglycemia He believes it is due to hypoglycemia EEG has been negative for any seizure disorder We will continue his outpatient medication regimen and check blood sugar AC at bedtime Stop insulin Has been on oral medications for diabetes No episodes of unresponsiveness as was described before He has been on his oral medication for diabetes and no episodes of hypoglycemia an hour unresponsiveness as he was complaining Will be discharged home today (3) Diabetes type 2, controlled: As above (4) HTN (hypertension): Continue current medication (5) Possible urinary tract infection: UA was suggestive of infection Awaiting urine culture and sensitivity Has been getting ceftriaxone Urine culture grew 3 different types of organisms Antibiotic is stopped and does not require any more antibiotics DVT prophylax Subcu heparin CODE STATUS Full Discharge today Admission and Anticipated Discharge Date Admission Date: July 09, 2019 Anticipated date of discharge: 07/12/19 Subjective The patient was seen and examined in medical telemetry unit He was admitted with the episodic loss of consciousness and confusion He has significant psychiatric illness and diabetes Feels fine as of this morning and denies any symptoms 07/11/2019 The patient was seen and examined in medical floor He does not have any complaints as of today No more episodes of unresponsiveness Still waiting for the urine culture to come back 07/12/2019 The patient was seen and examined in the medical floor He has been feeling a lot better He did not have any more episode of unresponsiveness His blood sugar remains stable in the hospital No more symptoms of UTI Review of Systems Review of Systems: All systems reviewed and are unremarkable except as noted below Psychiatric: + depression; no behavioral changes, no suicidal ideation and no homicidal ideation Physical Exam Physical Exam: Lying in bed comfortably Constitutional: well developed and well nourished; no acute distress and not ill appearing Eyes: PERRL, conjunctivae normal, anicteric sclerae ENMT: external ear and nose normal, oropharynx normal Neck: trachea midline, no thyromegaly Respiratory: normal respiratory effort; no respiratory distress Auscultation: lungs clear to auscultation bilaterally Cardiovascular: Rate/Rhythm: regular rate and regular rhythm Heart Sounds: no murmur Extremities: + edema (Bilateral 1+ edema) Gastrointestinal (Abdomen): Inspection/Auscultation: abdomen normal to inspection and normal bowel sounds Percussion/Palpation: abdomen soft; abdomen nontender Musculoskeletal: No acute arthritis involving any joints Neurologic: moves all extremities; no focal motor deficits Psychiatric: Orientation: alert and oriented x 3 Lymphatic: no cervical or axillary lymphadenopathy Results & Data Results & Data ([facility]) Vital Signs (Past 12 Hours) Vital Signs Temp Pulse Pulse Resp BP Pulse Ox 07/12/19 11:59 36.7 C 111 H 18 127/69 94 07/12/19 07:25 36.6 C 68 18 158/90 H 99 07/12/19 07:16 90 07/12/19 03:05 36.7 C 84 19 167/84 H 98 Medications Administered Current Inpatient Medications Acetaminophen (Tylenol) 650 mg PO Q4H PRN PRN Reason: Pain or Fever Stop: 08/08/19 23:53 Amlodipine Besylate (Norvasc) 5 mg PO DAILY [facility] Stop: 08/09/19 08:59 Last Admin: 07/12/19 08:09 Dose: 5 mg Documented by: Aripiprazole (Abilify) 15 mg PO BID [facility] Stop: 08/09/19 08:59 Last Admin: 07/12/19 08:08 Dose: 15 mg Documented by: Aspirin (Ecotrin Ectab) 81 mg PO DAILY [facility] Stop: 08/09/19 08:59 Last Admin: 07/12/19 08:09 Dose: 81 mg Documented by: Atorvastatin Calcium (Lipitor) 40 mg PO HS [facility] Stop: 08/09/19 20:59 Last Admin: 07/11/19 21:03 Dose: 40 mg Documented by: Dextrose (Dextrose 50%) 25 - 50 ml IV UD PRN; Protocol PRN Reason: Hypoglycemia Protocol Stop: 08/09/19 00:14 Diphenhydramine HCl (Benadryl Capsule) 100 mg PO HS [facility] Stop: 08/09/19 20:59 Last Admin: 07/11/19 21:03 Dose: 100 mg Documented by: Glimepiride (Amaryl) 1 mg PO QAM [facility] Stop: 08/09/19 13:14 Last Admin: 07/12/19 08:08 Dose: 1 mg Documented by: Glucagon (Glucagen) 1 mg SQ UD PRN; Protocol PRN Reason: Hypoglycemia Protocol Stop: 08/09/19 00:14 Glucose (Glucose 40%) 15 - 30 gm PO UD PRN; Protocol PRN Reason: Hypoglycemia Protocol Stop: 08/09/19 00:14 Glucose (Dex4 Glucose) 4 - 8 tabs PO UD PRN; Protocol PRN Reason: Hypoglycemia Protocol Stop: 08/09/19 00:14 Hydrochlorothiazide (Hctz) 25 mg PO DAILY [facility] Stop: 08/09/19 08:59 Last Admin: 07/12/19 08:09 Dose: 25 mg Documented by: Ceftriaxone Sodium 2,000 mg/ (Dextrose) 70 mls @ 140 mls/hr IV Q24H [facility] Stop: 07/20/19 00:00 Last Infusion: 07/12/19 01:02 Dose: Infused Documented by: Irbesartan (Avapro) 150 mg PO DAILY [facility] Stop: 08/09/19 08:59 Last Admin: 07/12/19 08:09 Dose: 150 mg Documented by: Metoprolol Tartrate (Lopressor) 2.5 mg IV Q6 PRN PRN Reason: Tachycardia Stop: 08/08/19 23:53 Miscellaneous (Carbohydrates For Hypoglycemia) 15 - 30 gm PO UD PRN PRN Reason: Hypoglycemia Treatment Stop: 08/09/19 00:14 Nitroglycerin (Nitrostat) 0.4 mg SL UD PRN PRN Reason: Chest Pain Stop: 08/08/19 23:53 Ondansetron HCl (Zofran) 4 mg IV Q6H PRN PRN Reason: Nausea Stop: 08/08/19 23:53 Polyethylene Glycol (Miralax Powder Packet) 17 gm PO DAILY PRN PRN Reason: Constipation Stop: 08/08/19 23:53 (1) HTN (hypertension) Hypertension type: unspecified Qualified Code(s): I10 - Essential (primary) hypertension
--- NOTE | 2019-07-12 15:35 | Discharge Summary ---
Date of Service July 12, 2019 Admission HPI Per Admitting Provider DICTATED BY: Moo Chavez MD DATE OF ADMISSION: 07/09/2019 CHIEF COMPLAINT: Confusion. HISTORY OF PRESENT ILLNESS: This is a 64-year-old male with past medical history significant for anxiety, delusional disorder, history of possible psychosis and malingering, delirium, hyperlipidemia, diabetes, hypertension, comes from [facility] because of ongoing confusion for the last 3 days. [facility] There was still on and off confusion, so he was brought in here. The patient says his anxiety is acting up. He has some schizophrenia. As per the guards, the patient is getting on and off unresponsive episode, currently he is alert and awake and oriented. Speech is clear. Denies any other complaints. Denies any headache, no dizziness, no blurred vision, no earache, no runny nose, no sore throat, no cough, no difficulty swallowing. Appetite is okay. No chest pain, no shortness of breath, no nausea, no abdominal pain. Normal bowel and bladder movements. Ambulates okay. No fevers. CT of the head is unremarkable in the ER. UA, there is some bacteria, but otherwise unremarkable. Resting comfortably and hemodynamically stable. Admission Exam Per Admitting Provider GENERAL: The patient is of moderate build, not in acute distress. VITAL SIGNS: Temperature 36.8, pulse 93, respiratory rate 16, blood pressure 153/87, oxygen 98% on room air. HEENT: No pallor, no icterus. Head is atraumatic. Pupils are equal, round, reactive to light. Extraocular muscles intact. No facial droop. NECK: Supple. CARDIOVASCULAR: S1, S2 heard, regular rate and rhythm, no murmur, no gallop. RESPIRATORY SYSTEM: Normal AP diameter. No accessory muscle use. No wheezing, no crackles. ABDOMEN: Soft, bowel sounds present, nontender. No distention. CENTRAL NERVOUS SYSTEM: Cranial nerves II-XII grossly intact. Alert and awake and oriented x3. Speech is clear. Power 5/5 in all extremities. No pronator drift. Normal coordination of movements. Sensation is intact. EXTREMITIES: No edema, no erythema. Principal Diagnosis Acute confusion-resolved, questionable unresponsive episode-none observed and no episodes of hypoglycemia, type 2 diabetes on oral medication, hypertension Discharge Exam Constitutional well developed and well nourished; no acute distress and not ill appearing Eyes PERRL, conjunctivae normal, anicteric sclerae ENMT external ear and nose normal, oropharynx normal Neck trachea midline, no thyromegaly Respiratory normal respiratory effort; no respiratory distress Auscultation: lungs clear to auscultation bilaterally Cardiovascular Rate/Rhythm: regular rate and regular rhythm Heart Sounds: no murmur Extremities: + edema (Bilateral 1+ edema) Gastrointestinal (Abdomen) Inspection/Auscultation: abdomen normal to inspection and normal bowel sounds Percussion/Palpation: abdomen soft; abdomen nontender Neurologic moves all extremities; no focal motor deficits Psychiatric Orientation: alert and oriented x 3 Lymphatic no cervical or axillary lymphadenopathy Discharge Data Allergies Allergy/AdvReac Type Severity Reaction Status Date / Time No Known Allergies Allergy Unverified 02/26/17 19:38 Consultations 07/09/19 21:43 ED Decision to Admit Stat 07/09/19 23:54 Consult Case Management - Discharge Planning Routine Consult Psychiatry Routine Ordered Studies 07/09/19 18:04 CT head/brain wo con Stat 07/09/19 23:54 CT abd pelvis wo con Routine Hospital Course (1) Acute confusion: Admitted from the [facility] with acute confusion/psychosis Admits to have anxiety/depression and possible schizophrenia but not documented in the chart correctly Clinically no acute symptoms this morning Appreciate psychiatric input and recommendation Will have outpatient psychiatric evaluation as he is getting before No more confusion which is completely resolved Was advised to have regular evaluation by his outpatient psychiatrist (2) Recurrent episodes of unresponsiveness: Admits to have recurrent unresponsiveness Happens about 2 times a week No documentation of self injury and no documentation of hypoglycemia He believes it is due to hypoglycemia EEG has been negative for any seizure disorder We will continue his outpatient medication regimen and check blood sugar AC at bedtime Stop insulin Has been on oral medications for diabetes No episodes of unresponsiveness as was described before He has been on his oral medication for diabetes and no episodes of hypoglycemia an hour unresponsiveness as he was complaining Will be discharged home today (3) Diabetes type 2, controlled: As above (4) HTN (hypertension): Continue current medication (5) Possible urinary tract infection: UA was suggestive of infection Awaiting urine culture and sensitivity Has been getting ceftriaxone Urine culture grew 3 different types of organisms Antibiotic is stopped and does not require any more antibiotics DVT prophylax Subcu heparin CODE STATUS Full Discharge today Total Time Total Time Spent Total Time Spent (In Minutes): 35 minutes Total Time Includes: Examination of the Patient, Discharge Planning, Medication Reconciliation and Communication With Other Providers Discharge Plan Discharge Items [facility] Disposition: [facility] Reason For Visit: CONFUSION Discharge Diagnosis: Acute confusion-resolved, questionable unresponsive episode-none observed and no episodes of hypoglycemia, type 2 diabetes on oral medication, hypertension Condition on Discharge: Good Activity: Resume your previous activity Non-emergency contact: Primary Care Provider Call non-emergency contact if: you have any medication questions Follow-up/Referrals: Saji ANDERSON [Primary Care Provider] - Diet: Carb Consistent or DM2 Addtl Attending Provider Instructions: Try to drink more fluid Pending Studies at Discharge: No Stand-Alone Forms: My [facility] Skilled Items Patient informed of condition?: Yes Discharge Level of Care: Other Communicable Disease: No Discharge Prognosis: Stable Lines: None Urinary Catheter: No Medications and DC Order Prescriptions: Continued aripiprazole 15 mg Tablet 15 mg PO BID RF: 0 diphenhydramine HCl 50 mg Capsule 100 mg PO HS RF: 0 amlodipine 5 mg Tablet 5 mg PO DAILY RF: 0 aspirin [Aspirin Low Dose] 81 mg Tablet,Delayed Release (Dr/Ec) 81 mg PO DAILY RF: 0 atorvastatin 40 mg Tablet 40 mg PO HS RF: 0 glimepiride 1 mg Tablet 1 mg PO QAM RF: 0 hydrochlorothiazide 25 mg Tablet 25 mg PO DAILY RF: 0 irbesartan 150 mg Tablet 150 mg PO DAILY RF: 0 Discharge Orders: Discharge Order (Routine); Ordered 07/12/19 Ordered By: Regina Pierson Admission Data Admit Date/Time: 07/09/19 22:25 Attending Provider: Regina Pierson Admit Provider: Moo Chavez Primary Care Provider: Saji ANDERSON Other Providers: Moo Chavez ; Conchita Panchal Other Interventions: Discharge Summary Assessment (RN) Last Done: 07/12/19 12:42
== END 2019-07-12 16:29 | DRG 948 ==
LOC: ED 17:14 → 2N 22:25